=== PATIENT | female | born 1945 | race Caucasian/White ===

== ENCOUNTER → 2020-05-13 12:11 | Outpatient (CLI) | payer MEDICARE, SELFPAY ==
--- NOTE | ~2020-05-13 | MR_ITS ---
EXAMINATION: MR thoracic spine wo con EXAM DATE: 05/13/2020 13:20 INDICATION: Left arm pain, mid to low back pain. TECHNIQUE: Multi-sequential, multiplanar MR images of the thoracic spine were obtained without contra st. Sagittal T1, T2, T2 fat saturation, axial T2 weighted images reviewed. There is no prior study for comparison. FINDINGS: There is moderate disc disease at T7-8 with small to moderate-sized disc bulge and central protrusion indenting the spinal cord but causing no more than mild central canal stenosis. The spinal cord signal intensity and intrinsic morphology is normal. Mild to moderate disc bulges at T9-T10 and T10-11 also causing no more than mild central canal stenosis. There is overall mild to moderate thor acic facet arthropathy. Mild to moderate left neural foraminal stenosis from T9 through T11 and right neural foraminal stenosis from T9 through T12. Several renal lesions consistent with simple cysts. IMPRESSION: Overall mild to moderate thoracic spondylosis. Reviewed, dictated and finalized at location A.
--- NOTE | ~2020-05-13 | MR_ITS ---
EXAMINATION: MR cervical spine wo con EXAM DATE: 05/13/2020 13:20 INDICATION: Neck pain. Left arm pain. TECHNIQUE: Multi-sequential, multiplanar MR images of the cervical spine were obtained without contra st. Axial T2, axial T2 MERGE sequence. Sagittal T1, T2, T2 fat saturation images also obtained. Th ere is no prior study for comparison. FINDINGS: There is moderate disc disease at C6-7, mild to moderate at C5-6. There is 2 mm anterolist hesis C7 on T1. The vertebral bodies are otherwise aligned. Cervicomedullary junction is normal in a ppearance. There are no suspicious marrow signal abnormalities. Paraspinal soft tissue is unremarkabl e. Level by level evaluation: C2-C3: Disc does not extend beyond the endplate margin. Uncovertebral joint arthropathy: Mild right. Facet joint arthropathy: Moderate right, mild left. Neural foraminal stenosis: No stenosis. Central canal stenosis: No stenosis. C3-C4: Mild disc osteophyte complex asymmetric to the right Uncovertebral joint arthropathy: Mild to moderate right, mild left. Facet joint arthropathy: Moderate bilateral. Neural foraminal stenosis: Mild to moderate right, mild left. Central canal stenosis: Mild. C4-C5: Disc does not extend beyond the endplate margin. Uncovertebral joint arthropathy: Mild bilateral. Facet joint arthropathy: Moderate left, mild right. Neural foraminal stenosis: Mild left. Central canal stenosis: No stenosis. C5-C6: There is a mild diffuse disc bulge. Uncovertebral joint arthropathy: Mild to moderate bilateral. Facet joint arthropathy: Moderate left, mild to moderate right. Neural foraminal stenosis: Moderate right, mild left. Central canal stenosis: Mild. C6-C7: There is a mild to moderate diffuse disc bulge. Uncovertebral joint arthropathy: Moderate bilateral. Facet joint arthropathy: Mild to moderate left, mild right. Neural foraminal stenosis: Moderate to severe left, mild to moderate right. Central canal stenosis: Mild. C7-T1: There is a mild diffuse disc bulge. Uncovertebral joint arthropathy: Mild to moderate left, mild right. Facet joint arthropathy: Moderate right, mild left. Neural foraminal stenosis: Mild to moderate bilateral. Central canal stenosis: Mild. IMPRESSION: 1. C6-7 moderate to severe left neural foraminal stenosis. 2. Lesser spondylosis at other levels. Reviewed, dictated and finalized at location A.
--- NOTE | ~2020-05-13 | MR_ITS ---
EXAMINATION: MR lumbar spine wo [facility] EXAM DATE: 05/13/2020 13:33 INDICATION: Low back pain. TECHNIQUE: Multi-sequential, multiplanar MR images of the lumbar spine were obtained without contrast . Sagittal T1, T2, T2 fat saturation images. Axial T2 weighted images. Comparison is made to prior examination from 05/01/2006. FINDINGS: There is moderate upper thoracic dextroscoliosis with resultant loss of vertebral body heig hts and the concave side of the scoliosis. Moderate to severe disc disease at all lumbar levels. Ther e is 4 mm retrolisthesis L1 on L2, 3 mm retrolisthesis L2 on L3 and L3 on L4. An 5 mm retrolisthesis L5 on S1. The conus medullaris terminates at the T12-L1 level and has normal signal intensity and mor phology. Renal lesions which are fluid signal intensity, imaged portions are consistent with cysts. Level by level evaluation: T12-L1: There is a mild diffuse disc bulge. Facet arthropathy: Mild to moderate right, mild left. Neural foraminal stenosis: No stenosis. Central canal stenosis: No stenosis. L1-L2: There is a moderate diffuse disc bulge. Facet arthropathy: Moderate left, mild to moderate right. Neural foraminal stenosis: Mild to moderate left, mild right. Central canal stenosis: Mild to moderate. L2-L3: There is a moderate diffuse disc bulge. Facet arthropathy: Moderate. Neural foraminal stenosis: Moderate left, no right. Central canal stenosis: Mild to moderate. L3-L4: There is a moderate diffuse disc bulge. Facet arthropathy: Moderate bilateral. Neural foraminal stenosis: Mild to moderate left, mild right. Central canal stenosis: Mild to moderate. L4-L5: There is a moderate diffuse disc bulge. Facet arthropathy: Moderate. Neural foraminal stenosis: Moderate to severe right, mild to moderate left. Central canal stenosis: Mild to moderate. L5-S1: There is a moderate diffuse disc bulge. Facet arthropathy: Severe right, moderate left. Neural foraminal stenosis: Moderate to severe right, mild left. Central canal stenosis: Mild to moderate. IMPRESSION: 1. Moderate upper lumbar dextroscoliosis. 2. Moderate to severe diffuse lumbar disc disease 3. Moderate to severe right neural foraminal stenosis L4-5 and L5-S1. 4. Multiple lumbar subluxations. Reviewed, dictated and finalized at location A.
== END ==
PROVIDERS: PCP Family Medicine; Visit Provider Family Medicine
DX: M51.36 Other intervertebral disc degeneration, lumbar region (principal); M48.07 Spinal stenosis, lumbosacral region; M47.894 Other spondylosis, thoracic region; M48.02 Spinal stenosis, cervical region
CPT/HCPCS: 72141; 72146; 72148

== ENCOUNTER → 2020-09-30 11:44 | Outpatient (CLI) | payer MEDICARE, SELFPAY ==
--- NOTE | ~2020-09-30 | MM_ITS ---
EXAMINATION: MM screening dennis BI w jeet HISTORY: Screening mammogram, family history of breast cancer in her sister. TECHNIQUE: Craniocaudal and mediolateral oblique 3-D tomosynthesis images were obtained and synthetic 2-D images were generated. CAD analysis was submitted and interpreted. COMPARISON: 08/26/2019, 08/20/2018, 07/31/2017 BREAST PARENCHYMAL COMPOSITION: There are scattered areas of fibroglandular density. FINDINGS: Scattered benign-appearing calcifications are present. There is no evidence of suspicious m ass, calcification, or architectural distortion to suggest malignancy in either breast. There has bee n no suspicious interval change. IMPRESSION: 1. No mammographic evidence of malignancy. 2. Recommend routine screening mammography in one year. BI-RADS Category 2: Benign finding(s). Reviewed, dictated and finalized at location A. WAY ADMINISTRATIVE ENGINEER
== END ==
PROVIDERS: Visit Provider Obstetrics & Gynecology
DX: Z12.31 Encounter for screening mammogram for malignant neoplasm of breast (principal)
CPT/HCPCS: 77063; 77067

== ENCOUNTER → 2021-10-01 11:31 | Outpatient (CLI) | payer MEDICARE, SELFPAY ==
--- NOTE | ~2021-10-01 | MM_ITS ---
EXAMINATION: MM screening dennis BI w jeet HISTORY: Screening mammogram TECHNIQUE: Craniocaudal and mediolateral oblique 3-D tomosynthesis images were obtained and synthetic 2-D images were generated. CAD analysis was submitted and interpreted. COMPARISON: 09/30/2020, 08/26/2019, 08/20/2018 bilateral screening mammogram examinations BREAST PARENCHYMAL COMPOSITION: There are scattered areas of fibroglandular density. FINDINGS: Occasional benign calcifications. There is no evidence of suspicious mass, calcification, o r architectural distortion to suggest malignancy in either breast. There has been no suspicious inter paul change. IMPRESSION: 1. No mammographic evidence of malignancy. 2. Recommend routine screening mammography in one year. BI-RADS Category 2: Benign finding(s). Reviewed, dictated and finalized at location A. ING DIRECTOR
== END ==
PROVIDERS: PCP Family Medicine; Visit Provider Obstetrics & Gynecology
DX: Z12.31 Encounter for screening mammogram for malignant neoplasm of breast (principal)
CPT/HCPCS: 77063; 77067

== ENCOUNTER → 2022-06-30 14:46 | Outpatient (CLI) | payer MEDICARE, SELFPAY ==
--- NOTE | ~2022-06-30 | DEXA_ITS ---
Bone Density Report Name: AKASH DE Age: 77 Sex: Female Ethnicity: White Date of : 1945 Indication: postmenopausal; screening for osteoporosis; height loss; Referring Provider: ADAMS BACH Study: Bone densitometry was performed. Exam Date: June 30, 2022 Accession number: [id number] Bone Density: Region BMD T-score Z-score Classification AP Spine (L1, L2, L3) 1.229 1.9 4.4 Normal Femoral Neck (Left) 0.780 -0.6 1.6 Normal Total Hip (Left) 0.959 0.1 2.0 Normal Femoral Neck (Right) 0.683 -1.5 0.7 Osteopenia Total Hip (Right) 0.912 -0.2 1.7 Normal Total Hip Mean 0.936 -0.1 1.9 Normal World Health Organization criteria for BMD impression classify patients as: Normal (T-score at or above -1.0), Osteopenia (T-score between -1.0 and -2.5), or Osteoporosis (T-score at or below -2.5). 10-year Fracture Risk(1): Major Osteoporotic Fracture 13% Hip Fracture 2.8% Reported Risk Factors: [place] (), Neck BMD=0.683, BMI=25.8 (1) FRAX(R) Version 3.08. Fracture probability calculated for an untreated patient. Fracture probability may be lower if the patient has received treatment. Clinical Information Provided by Patient: Has used the following medications: Vitamin D, Calcium Patient maximum height was 64.5 Menopause Age: 47 Drinks caffeinated beverages Onset of menses at age 14 Number of children 1 Impression: The patient has low bone mass, based on the Right Femoral Neck T-score. The patient has an estimated ten-year risk of hip fracture of 2.8% and an estimated ten-year risk of major fracture of 13%, based on the WHO FRAX algorithm. Discussion: BONE DENSITY IS LOW AT ONE OR MORE SKELETAL SITES. This patient's lowest T-score is low at one or more skeletal sites. It meets the World Health Organization's (WHO) criteria for ?low bone mass? (T-score between -1.0 and -2.5). The patient's 10-year risk of fracture as calculated by FRAX is less than the threshold where pharmacological therapy is recommended by the National Osteoporosis Foundation (NOF). However, all treatment decisions require clinical judgment and consideration of individual patient factors, including patient preferences, comorbidities, previous drug use, risk factors not captured in the FRAX model (e.g., frailty, falls, vitamin D deficiency, increased bone turnover, interval significant decline in bone density) and possible under or overestimation of fracture risk by FRAX. The patient should follow a healthful lifestyle (good nutrition with adequate calcium and vitamin D, and appropriate weight-bearing exercise). Follow-Up: Consider repeating this study in 2 to 3 years to reassess this patient's status, or sooner if there is some new clinical indication. Reported by: [facility] on 06/30/2022 3:13:00 PM.
== END ==
PROVIDERS: PCP Family Medicine; Visit Provider Family Medicine
DX: Z78.0 Asymptomatic menopausal state (principal); M85.851 Other specified disorders of bone density and structure, right thigh
CPT/HCPCS: 77080

== ENCOUNTER → 2022-10-27 14:11 | Outpatient (CLI) | payer MEDICARE, SELFPAY ==
--- NOTE | ~2022-10-27 | US_ITS ---
US renal BI 10/27/2022 14:32 Procedure: Realtime transabdominal ultrasound of the kidneys and bladder. Indication: Hypertension. Comparison: Ultrasound dated 07/23/2013 Findings: Renal echotexture is normal bilaterally without hydronephrosis, contour deforming mass or r enal calculus. There are left renal cysts, largest measuring 2.5 cm. The right kidney measures 9.3 cm and left kidney measures 8.7 cm. Bladder within normal limits. Impression: 1: Left renal cysts, largest measuring 2.5 cm. Reviewed, dictated and finalized at location A. DOWEL MACHINE OPERATOR Impression: 1: Left renal cysts, largest measuring 2.5 cm.
== END ==
PROVIDERS: PCP Family Medicine; Visit Provider Internal Medicine Nephrology
DX: I12.9 Hypertensive chronic kidney disease with stage 1 through stage 4 chronic kidney disease, or unspecified chronic kidney disease (principal); N18.32 Chronic kidney disease, stage 3b; E78.2 Mixed hyperlipidemia; N28.1 Cyst of kidney, acquired
CPT/HCPCS: 76775

== ENCOUNTER → 2022-12-16 10:05 | Outpatient (CLI) | payer MEDICARE, SELFPAY ==
--- NOTE | ~2022-12-16 | XR_ITS ---
Right Shoulder Technique: AP and axillary views were obtained. Clinical History: Joint pain Findings: No fracture or dislocation is seen. Osseous alignment is anatomic. The glenohumeral and acr omioclavicular joint spaces are preserved. Soft tissues are unremarkable. Impression: Unremarkable right shoulder radiographs. Reviewed, dictated and finalized at [facility]. SSRS SSIS DEVELOPER Impression: Unremarkable right shoulder radiographs.
--- NOTE | ~2022-12-16 | XR_ITS ---
Right Hand Technique: PA and lateral views were obtained. Clinical History: Joint pain Findings: No acute fracture or dislocation is seen. There is minimal degenerative change at the inter phalangeal joint of the stomach and the second DIP joint. Soft tissues are unremarkable. Impression: Minimal degenerative change, as above. Reviewed, dictated and finalized at location . S LAYER Impression: Minimal degenerative change, as above.
--- NOTE | ~2022-12-16 | XR_ITS ---
Right Knee Technique: AP and lateral views were obtained. Clinical History: Pain Findings: No fracture or dislocation is seen. Osseous alignment is anatomic. Joint spaces are preserv ed without degenerative or erosive change. Moderate tricompartmental spurring noted. Soft tissues are unremarkable. No joint effusion is seen. Impression: Moderate tricompartmental degenerative spurring. Reviewed, dictated and finalized at location . E HAND PACKER Impression: Moderate tricompartmental degenerative spurring.
--- NOTE | ~2022-12-16 | XR_ITS ---
Left Hand Technique: PA and lateral views were obtained. Clinical History: Joint pain Findings: No acute fracture or dislocation is seen. Osseous alignment is anatomic. Joint spaces are p reserved. Soft tissues are unremarkable. Impression: Unremarkable left hand. Reviewed, dictated and finalized at location M. AURANT LINE SERVER Impression: Unremarkable left hand.
--- NOTE | ~2022-12-16 | XR_ITS ---
Left Knee Technique: AP and lateral views were obtained. Clinical History: Joint pain Findings: No fracture or dislocation is seen. Osseous alignment is anatomic. Mild tricompartmental sp urring noted. Soft tissues are unremarkable. No joint effusion is seen. Impression: Mild tricompartmental degenerative spurring Reviewed, dictated and finalized at [facility]. CHER TENDER Impression: Mild tricompartmental degenerative spurring
--- NOTE | ~2022-12-16 | XR_ITS ---
EXAMINATION: XR foot RT 2V, XR foot LT 2V DATE: 12/16/2022 12:09 INDICATION: Multiple joint pain TECHNIQUE: 1. Dorsoplantar and lateral views of the left foot were obtained. 2. Dorsoplantar and lateral views of the right foot were obtained. COMPARISON: None. FINDINGS: Mild bilateral hallux valgus with associated bunions medial heads of the first metatarsal and severe right and moderate left first metatarsophalangeal osteoarthritis. Alignment is otherwise unremarkable at both feet. No fractures. Additional mild polyarticular osteoarthritis involving multiple addition al joints throughout the bilateral feet. No erosions to suggest inflammatory arthritis. No ankle join t effusions. IMPRESSION: 1. Mild bilateral hallux valgus with bunions and severe left and moderate right first metatarsophalan geal osteoarthritis. Reviewed, dictated and finalized at location B. CTOR NICU IMPRESSION: 1. Mild bilateral hallux valgus with bunions and severe left and moderate right first metatarsophalangeal osteoarthritis.
--- NOTE | ~2022-12-16 | XR_ITS ---
AP and lateral views of the bilateral hips Clinical history: Pain Findings: No acute fracture or dislocation is seen. Osseous alignment is anatomic. Bilateral hip and SI joint spaces are preserved. Soft tissues are unremarkable. Impression: No significant abnormality is seen. Reviewed, dictated and finalized at [facility]. RINE CELLS OPERATOR Impression: No significant abnormality is seen.
--- NOTE | ~2022-12-16 | XR_ITS ---
Left Shoulder Technique: AP and axillary views were obtained. Clinical History: Joint pain Findings: No fracture or dislocation is seen. Osseous alignment is anatomic. The glenohumeral and acr omioclavicular joint spaces are preserved. Soft tissues are unremarkable. Impression: Unremarkable left shoulder radiographs. Reviewed, dictated and finalized at [facility]. CAL CENTER MANAGER Impression: Unremarkable left shoulder radiographs.
== END ==
PROVIDERS: PCP Family Medicine; Visit Provider Internal Medicine Rheumatology
DX: M25.50 Pain in unspecified joint (principal); M20.11 Hallux valgus (acquired), right foot; M20.12 Hallux valgus (acquired), left foot; M19.071 Primary osteoarthritis, right ankle and foot; M19.072 Primary osteoarthritis, left ankle and foot; M17.0 Bilateral primary osteoarthritis of knee
CPT/HCPCS: 73030; 73120; 73521; 73560; 73620

== ENCOUNTER 2023-02-15 15:29 | Outpatient (CLI) | payer MEDICARE, SELFPAY ==
[2023-02-15 15:45] LABS: Basophils Absolute Auto 0.1 K/mm3 (0.0-0.1); Basophils Percent Auto 0.6 % (0.2-1.2); Eosinophils Absolute Auto 0.2 K/mm3 (0-0.3); Eosinophils Percent Auto 1.9 % (0-4.4); Hematocrit 38.2 % (37.0-47.0); Hemoglobin 12.4 g/dL (12.0-15.0); Immature Granulocyte Absolute 0.02 K/mm3 (0.00-0.031); Immature Granulocyte Percent A 0.2 % (0-0.5); Lymphocytes Absolute Auto 3.08 K/mm3 (0.9-3.2); Lymphocytes Percent Auto 36.8 % (18.3-44.2); Mean Corpuscular HGB Conc 32.5 g/dl (32-36); Mean Corpuscular Hemoglobin 29.2 pg (26-34); Mean Corpuscular Volume 90.1 fl (80-100); Mean Platelet Volume 10.8 fl (7.4-10.4); Monocytes Absolute Auto 0.8 K/mm3 (0.1-0.6); Monocytes Percent Auto 9.9 % (2.6-8.5); Neutrophils Absolute Auto 4.2 K/mm3 (1.3-6.7); Neutrophils Percent Auto 50.6 % (45.5-73.1); Platelet Count Result 253 k/mm3 (150-375); Red Blood Count 4.24 M/mm3 (4.2-5.4); Red Cell Distribution Width 13.1 % (11.5-14.5); White Blood Count 8.4 K/mm3 (4.5-10.0)
[2023-02-15 16:29] LABS: Alanine Aminotransferase 29 U/L (6-35); Albumin Level 4.7 g/dL (3.5-5.1); Alkaline Phosphatase 70 U/L (38-126); Anion Gap 12 mmol/L (8-16); Aspartate Amino Transferase 30 U/L (14-36); Bilirubin,Total 0.4 mg/dL (0.2-1.3); Blood Urea Nitrogen 28 mg/dL (7-17); Calcium 9.8 mg/dL (8.4-10.2); Carbon Dioxide 24 mmol/L (22-30); Chloride 104 mmol/L (98-107); Estimated Glomerular Filt Rate 36; Glucose 104 mg/dL (65-110); Potassium 4.1 mmol/L (3.4-5.0); Sodium 140 mmol/L (137-145)
[2023-02-15 16:38] LABS: Immunoglobulin A 255 mg/dL (70-400); Immunoglobulin G 880 mg/dL (700-1600); Immunoglobulin M 112 mg/dL (40-230)
[2023-02-17 23:08] LABS: Albumin 4.1 g/dL (3.8-4.8); Alpha 1 Globulin 0.4 g/dL (0.2-0.3); Alpha 2 Globulin 1.1 g/dL (0.5-0.9); Beta 1 Globulin 0.5 g/dL (0.4-0.6); Gamma Globulin 0.9 g/dL (0.8-1.7); Protein, Total 7.3 g/dL (6.1-8.1)
[2023-02-18 09:27] LABS: Kappa\\Lambda Light Chains 1.31 (0.26-1.65)
== END 2023-02-15 15:30 | disposition home or self-care (01) ==
LOC: ANHLAB 15:32
PROVIDERS: PCP Family Medicine; Visit Provider Internal Medicine Hematology & Oncology
DX: D72.9 Disorder of white blood cells, unspecified (principal)
CPT/HCPCS: 36415; 80053; 82784; 83883; 84155; 84165; 85025

== ENCOUNTER → 2023-02-24 14:59 | Outpatient (CLI) | payer MEDICARE, SELFPAY ==
--- NOTE | ~2023-02-24 | MM_ITS ---
EXAMINATION: MM screening dennis BI w jeet HISTORY: Screening TECHNIQUE: Craniocaudal and mediolateral oblique 3-D tomosynthesis images were obtained and synthetic 2-D images were generated. CAD analysis was submitted and interpreted. COMPARISON: Comparison to multiple prior studies sequentially, with oldest reviewed study dated 05/2016. BREAST PARENCHYMAL COMPOSITION: The breasts are heterogeneously dense, which may obscure small masses . FINDINGS: There are developing asymmetries of the outer aspect of the right breast on CC view. The le ft breast is stable without evidence for malignancy. IMPRESSION: 1. New right breast asymmetries laterally on CC view. 2. Additional mammographic views and possible breast ultrasound are recommended. BI-RADS Category 0: Incomplete: Needs additional imaging evaluation. Reviewed, dictated and finalized at location A. IMPRESSION: 1. New right breast asymmetries laterally on CC view. 2. Additional mammographic views and possible breast ultrasound are recommended . BI-RADS Category 0: Incomplete: Needs additional imaging evaluation.
== END ==
PROVIDERS: PCP Family Medicine; Visit Provider Obstetrics & Gynecology
DX: Z12.31 Encounter for screening mammogram for malignant neoplasm of breast (principal); R92.8 Other abnormal and inconclusive findings on diagnostic imaging of breast
CPT/HCPCS: 77063; 77067

== ENCOUNTER → 2023-03-28 12:56 | Outpatient (CLI) | payer MEDICARE, SELFPAY ==
--- NOTE | ~2023-03-28 | MMUS_ITS ---
EXAMINATION: MM diagnostic dennis RT w jeet, US breast RT limited HISTORY: Right breast asymmetries on screening mammogram TECHNIQUE: Additional 3-D tomosynthesis images of the right breast were performed and synthetic 2-D i mages were generated. CAD analysis was submitted and interpreted. High resolution limited right breas t ultrasound was performed. COMPARISON: 02/24/2023, 10/01/2021, 09/30/2020 BREAST PARENCHYMAL COMPOSITION: The breasts are heterogeneously dense, which may obscure small masses . FINDINGS: MAMMOGRAPHIC FINDINGS: There is a return to baseline fibroglandular appearance with spot compression of the right breast in the area questioned on screening mammogram. ULTRASOUND: There is no suspicious solid or cystic mass in the vicinity of the mammographic findings in question. An intramammary lymph node is noted at the 9:00 location, 9 cm from the nipple. IMPRESSION: 1. No mammographic or sonographic evidence of malignancy. 2. Recommend routine screening mammography in one year. BI-RADS Category 2: Benign finding(s). Reviewed, dictated and finalized at location A. IMPRESSION: 1. No mammographic or sonographic evidence of malignancy. 2. Recommend routine screening mammography in one year. BI-RADS Category 2: Benign finding(s).
== END ==
PROVIDERS: PCP Obstetrics & Gynecology; Visit Provider Family Medicine
DX: R92.8 Other abnormal and inconclusive findings on diagnostic imaging of breast (principal)
CPT/HCPCS: 76642; 77061; 77065; G0279

== ENCOUNTER 2023-05-04 10:57 | Emergency (ER) | payer MEDICARE, SELFPAY ==
[2023-05-04] VITALS (34 sets, daily range): BP systolic 147–188; BP diastolic 51–157; PULSE 61–88; RESP 13–25; TEMP 36.8; O2SAT 96–100
--- NOTE | ~2023-05-04 | XR_ITS ---
EXAM: XR ankle LT min 3V DATE: 05/04/2023 15:08 HISTORY: post reduction . COMPARISON: None available. FINDINGS/IMPRESSION: Radiographic detail obscured by overlying cast material. Significantly improved alignment of the distal tibial and fibular fractures as well as the tibiotalar dislocation, status post reduction. Mild persistent anterior and lateral displacement of the medial malleolar fragment. Mild medial displacement of the segmental fracture fragment off the distal fibula. A posterior malleolar fracture is now evident. Reviewed, dictated and finalized at location K.
--- NOTE | ~2023-05-04 | XR_ITS ---
EXAMINATION: XR ankle LT min 3V DATE: 05/04/2023 11:41 INDICATION: Left ankle dislocation status post reduction. TECHNIQUE: 3 views of left ankle were obtained. COMPARISON: Left ankle radiographs 11:17 AM FINDINGS: There is a comminuted fracture of distal fibula with medial aspect of the fracture line 16 mm proximal to the level of the tibial plafond. The main distal fracture fragment demonstrates latera l displacement and angulation. There is a transverse fracture of medial malleolus with lateral displa cement and angulation of the distal fracture fragment. There is a displaced fracture of the posterior malleolus. There is lateral dislocation of talus with respect to tibial plafond. IMPRESSION: 1. Trimalleolar ankle fracture dislocation with only slight improvement in alignment. Reviewed, dictated and finalized at location A. IMPRESSION: 1. Trimalleolar ankle fracture dislocation with only slight improvement in alig nment.
--- NOTE | ~2023-05-04 | XR_ITS ---
EXAMINATION: XR tibia fibula LT 2V DATE: 05/04/2023 11:41 INDICATION: Left lower leg injury. TECHNIQUE: 2 views of left tibia and fibula were obtained. COMPARISON: Left ankle radiographs 11:34 AM FINDINGS: There is a trimalleolar ankle fracture dislocation described in more detail on the ankle ra diographs. The knee demonstrates moderate osteoarthritis of the medial compartment and mild osteoarth ritis of lateral and patellofemoral compartments. IMPRESSION: 1. Trimalleolar ankle fracture dislocation. 2. Moderate left knee osteoarthritis. Reviewed, dictated and finalized at location A.
--- NOTE | ~2023-05-04 | XR_ITS ---
. XR ankle LT min 3V 05/04/2023 12:49 Indication: Post reduction left ankle fracture Procedure: 3 views left ankle Comparison: 05/04/2023 Findings: There is improved alignment of comminuted bilateral malleolar fractures compared with prior study. Comminuted distal fibular fracture exhibits mild lateral angulation. Transverse fracture of t he medial malleolar is present with lateral displacement and angulation. The posterior malleolus is o bscured. Cannot exclude fracture at this location. Lateral dislocation of the talus with respect to t he tibial plafond, although significant improvement of alignment at this joint. Impression: 1: Improved alignment of comminuted bimalleolar fracture post reduction. Cannot exclude posterior mal leolar fracture. Reviewed, dictated and finalized at location L. Impression: 1: Improved alignment of comminuted bimalleolar fracture post reduction. Cannot exclude posterior malleolar fracture.
--- NOTE | ~2023-05-04 | XR_ITS ---
CORRECTED REPORT dictation error JMG 05/16/23 This report was recreated on 05/16/23. Original report was XR ankle LT min 3V 05/04/2023 11:28 Indication: LEFT ankle pain Procedure: 3 views LEFT ankle Comparison: No prior studies for comparison. Findings: There are comminuted displaced bimalleolar fractures. There is lateral and posterior dislocation of the talus with respect to the tibia. There is soft tissue swelling. Talus is grossly unremarkable. There are mild degenerative changes of the midfoot. Impression: 1: Displaced, comminuted bimalleolar fracture. Reviewed, dictated and finalized at location L. MTDD Impression: 1: Displaced, comminuted bimalleolar fracture.
[2023-05-04] MEDS: fentaNYL CITRATE INJ (*CRX) 100 MCG/2 ML VIAL (11:22)
--- NOTE | 2023-05-04 11:23 | PC.NURSE ---
akhil from Dr Britton Fentanyl 50 mcg ivp x1
--- NOTE | 2023-05-04 11:27 | PC.NURSE ---
Dr. Britton in room with pt, pain meds given and reduction performed. splint placed for repeat xray.
[2023-05-04] MEDS: PROPOFOL IV EMULSION 200 MG/20 ML VIAL ×2 (12:20→14:52)
--- NOTE | 2023-05-04 12:36 | PC.NURSE ---
1215: Time performed, all equip in room, consent signed. 1220: Dr. Britton at bedside, administers 60 mg of propofol IV 1221: Reduction complete 1222: Pt O2 dropping, requiring O2. 4L NC 1224: Pt full awake 1225: O2 reduced to 2L 1234: O2 removed. Pt fully awake at this time
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
[2023-05-04 12:44] LABS: Glucose Point of Care 144 mg/dl (65-105)
[2023-05-04] MEDS: HYDROmorphone HCL INJ (*CRX) 1 MG/ML SYR 0.5 MG IV PUSH (14:19)
--- NOTE | 2023-05-04 15:16 | PC.NURSE ---
1450 Performed time out with Dr. Bateman 1452 60mg Propofol was given by Dr. Britton 1455 Pt requiring some oxygen 1500 Dr. Bateman finished. Pt fully awake obtaining xray and weaning off oxygen
[2023-05-04] MEDS: HYDROcodone/acetaminophen (*CRX) 5-325 MG TABLET 1 TAB PO (17:15)
== END 2023-05-04 18:15 | disposition home or self-care (01) ==
PROVIDERS: Emergency Provider General Practice; PCP Family Medicine
DX: S82.852A Displaced trimalleolar fracture of left lower leg, initial encounter for closed fracture (principal); E11.22 Type 2 diabetes mellitus with diabetic chronic kidney disease; I12.9 Hypertensive chronic kidney disease with stage 1 through stage 4 chronic kidney disease, or unspecified chronic kidney disease; N18.30 Chronic kidney disease, stage 3 unspecified; E78.5 Hyperlipidemia, unspecified; E03.9 Hypothyroidism, unspecified; M17.12 Unilateral primary osteoarthritis, left knee; Z79.4 Long term (current) use of insulin; Z79.82 Long term (current) use of aspirin; V03.00XA Pedestrian on foot injured in collision with car, pick-up truck or van in nontraffic accident, initial encounter
CPT/HCPCS: 27818; 73590; 73610; 82948; 96374; 96375; 99285; A9270; J1170; J2704; J3010; J7030

== ENCOUNTER 2024-07-02 13:00 | Outpatient (CLI) | payer MEDICARE, SELFPAY ==
--- NOTE | ~2024-07-02 | XR_ITS ---
EXAM: XR hand LT min 3V DATE: 07/02/2024 13:18 HISTORY: Pain in joints of LT hand 3RD TO 4TH METACARPAL AREA . COMPARISON: 12/16/2022. FINDINGS: Decreased mineralization. No fracture or dislocation. No lytic or blastic lesion. Scattere d osteoarthritic changes, most notably in the interphalangeal joint of the thumb, triscaphe joint, an d the first CMC joint. No erosion or periosteal change. Soft tissues within normal limits. IMPRESSION: Mild polyarticular osteoarthritis. Reviewed, dictated and finalized at location K.
== END 2024-07-02 13:01 | disposition home or self-care (01) ==
LOC: ANHIMG 13:05
PROVIDERS: PCP Family Medicine; Visit Provider Plastic Surgery
DX: M19.042 Primary osteoarthritis, left hand (principal)
CPT/HCPCS: 73130

== ENCOUNTER 2024-08-07 13:22 | Outpatient (CLI) | payer MEDICARE, SELFPAY ==
--- NOTE | 2024-08-07 14:25 | NEURO_ITS ---
Impression: # Complains of cramps in left hand. # Left ulnar neuropathy across the elbow. # Needle/EMG exam mildly abnormal in left 1st DI and ADM Consistent with the clinical complaints of cramps. # No Carpal Tunnel Syndrome. Nerve Conduction Studies Anti Sensory Summary Table Stim Site NR Peak (ms) P-T Amp (?V) Site1 Site2 Delta-P (ms) Dist (cm) Hayden (m/s) Left Median Anti Sensory (2-3nd Digit) Wrist 3.5 16.4 Wrist 2-3nd Digit 3.5 14.0 40 Wrist 3.3 30.4 Wrist 2-3nd Digit 3.5 14.0 40 Left Radial Anti Sensory (Base 1st Digit) Wrist 2.3 7.0 Wrist Base 1st Digit 2.3 0.0 Left Ulnar Anti Sensory (5th Digit) Wrist 2.9 36.8 Wrist 5th Digit 2.9 14.0 48 Motor Summary Table Stim Site NR Onset (ms) O-P Amp (mV) Site1 Site2 Delta-0 (ms) Dist (cm) Hayden (m/s) Left Median Motor (Abd Poll Brev) Wrist 3.4 2.6 Elbow Wrist 5.0 28.0 56 Elbow 8.4 2.0 Left Ulnar Motor (Abd Dig Minimi) Wrist 2.9 7.4 A Elbow Wrist 5.6 28.0 50 A Elbow 8.5 5.8 B Elbow Wrist 3.4 20.0 59 B Elbow 6.3 4.3 F Wave Studies NR F-Lat (ms) L-R F-Lat (ms) Left Median (Mrkrs) (Abd Poll Brev) 31.00 Left Ulnar (Mrkrs) (Abd Dig Min) 29.46 EMG Side Muscle Nerve Root Ins Act Fibs Amp Dur Recrt Comment Left 1stDorInt Ulnar C8-T1 Nml Nml Nml >12ms +1 Left Ext Indicis Radial (Post Int) C7-8 Nml Nml Nml Nml Nml Left Ext Digitorum Radial (Post Int) C7-8 Nml Nml Nml Nml Nml Left BrachioRad Radial C5-6 Nml Nml Nml Nml Nml Left PronatorTeres Median C6-7 Nml Nml Nml Nml Nml Left Abd Poll Brev Median C8-T1 Nml Nml Nml Nml Nml Left ABD Dig Min Ulnar C8-T1 Nml Nml Nml >12ms +1 MTDD
== END 2024-08-07 13:23 | disposition home or self-care (01) ==
PROVIDERS: PCP Family Medicine; Visit Provider Plastic Surgery
DX: G56.02 Carpal tunnel syndrome, left upper limb (principal); M25.549 Pain in joints of unspecified hand; M62.838 Other muscle spasm; G56.22 Lesion of ulnar nerve, left upper limb
CPT/HCPCS: 95886; 95909

== ENCOUNTER 2025-01-03 08:53 | Outpatient (CLI) | payer MEDICARE, SELFPAY ==
--- OUTSIDE RECORDS SUMMARY | 2025-01-03 09:01 | XMS_ITS | Patient Health Record ---
Author Organization [facility] Address [address] [place] [address] Care Team Providers Care Terrazzo Tile Maker Name Role Phone Jewels Brown Primary Care Provider UnavailYariel Odom Unavailable [phone] Parisa Dillon Unavailable [phone] Ros, Provider Unavailable Unavailab le Allergies Allergen (clinical drug ingredient) Drug/Non Drug Allergy documented on EMR Reaction Allergy Type Onset Date Status CEFTRIAXONE ? (uncoded) Hives Allergy Active DAPTOMYCIN ? (uncoded) Hives Allergy Active Reason For Referral No Information Medications Medication SIG (Take, Route, Frequency, Duration) Notes Start Date End Date Status LANTUS Active VITAMIN B12 Active VITAMIN A Active CALCIUM 500+D Active Losartan Potassium *Please revie w and pick correct strength-formulati on from Medispan options. If intended option is not shown, discontinue and re-order from Quick Search* Active ASPIRIN 81 mg 1 tab(s) orally once a day Active Meclizine HCl *Please review a nd pick correct strength-formulati on from Medispan options. If intended option is not shown, discontinue and re-order from Quick Search* Active FISH OIL Active amLODIPine Besylate *Please revi ew and pick correct strength-formulati on from Medispan options. If intended option is not shown, discontinue and re-order from Quick Search* Active VITAMIN D3 Active VITAMIN C Active ZYRTEC 10 mg 1 tab(s) orally once a day Active Levothyroxine Sodium *Please rev iew and pick correct strength-formulati on from Medispan options. If intended option is not shown, discontinue and re-order from Quick Search* Active VITAMIN E Active Atorvastatin Calcium *Please rev iew and pick correct strength-formulati on from Medispan options. If intended option is not shown, discontinue and re-order from Quick Search* Active Fish Oil *Please review a nd pick correct strength-formulati on from Medispan options. If intended option is not shown, discontinue and re-order from Quick Search* Active Spironolactone *Please review a nd pick correct strength-formulati on from Medispan options. If intended option is not shown, discontinue and re-order from Quick Search* Active Calcium 500+D *Please review a nd pick correct strength-formulati on from Medispan options. If intended option is not shown, discontinue and re-order from Quick Search* Active hydrALAZINE HCl *Please review a nd pick correct strength-formulati on from Medispan options. If intended option is not shown, discontinue and re-order from Quick Search* Active MONTELUKAST 10 mg 1 tab(s) orally once a day for 30 days 12/26/2023 Active Lantus *Please review a nd pick correct strength-formulati on from Medispan options. If intended option is not shown, discontinue and re-order from Quick Search* Active PEPCID 20 mg 1 tab(s) orally 2 times a day for 30 days 12/26/2023 Active HumaLOG *Please review a nd pick correct strength-formulati on from Medispan options. If intended option is not shown, discontinue and re-order from Quick Search* Active Aspirin 81 MG 1 tab(s) orally once a day Active HYDRALAZINE Active ZyrTEC Allergy 10 MG 1 tab(s) orally once a day Active AMLODIPINE Active Vitamin E *Please review a nd pick correct strength-formulati on from Medispan options. If intended option is not shown, discontinue and re-order from Quick Search* Active HUMALOG Active SPIRONOLACTONE Activ e CETIRIZINE 10 mg 1 tab(s) orally twice a day for 30 days 12/26/2023 Active LEVOTHYROXINE Active Vitamin B12 *Please review a nd pick correct strength-formulati on from Medispan options. If intended option is not shown, discontinue and re-order from Quick Search* Active ATORVASTATIN Active Vitamin A *Please review a nd pick correct strength-formulati on from Medispan options. If intended option is not shown, discontinue and re-order from Quick Search* Active LOSARTAN Active Vitamin D3 *Please review a nd pick correct strength-formulati on from Medispan options. If intended option is not shown, discontinue and re-order from Quick Search* Active MECLIZINE Active Vitamin C *Please review a nd pick correct strength-formulati on from Medispan options. If intended option is not shown, discontinue and re-order from Quick Search* Active Montelukast Sodium 10 MG 1 tab(s) orally once a day for 30 days 12/26/2023 Active Cetirizine HCl 10 MG 1 tab(s) orally twice a day for 30 days 12/26/2023 Active Pepcid 20 MG 1 tab(s) orally 2 times a day for 30 days 12/26/2023 Active Immunizations Vaccine Route Administration Date Status Comme nts [facility] Quadrivalent Unknown 08/24/2023 Administered Po rtal Information NOC Prevnar 13 Unknown 07/22/2021 Administered Portal I nformation Social History Tobacco Use: Social History Observation Description Date Details (start date - stop date) Never Smoker NA - NA Smoking Smart Form: Question Answer Notes Are you a: never smoker Problems Problem Type SNOMED Code ICD Code Onset Dates Problem Status W/U Status Risk Notes Problem Eruption of skin (634698015) Rash and other nonspecific skin eruption (R21) Active confirmed Problem Essential hypertension (63223476) Essential (primary) hypertension (I10) Active confirmed Problem Chronic rhinitis (13758495) Chronic rhinitis (J31.0) Active confirmed Problem Hypertrophy of nasal turbinates (61831764) Hypertrophy of nasal turbinates (J34.3) Active confirmed Encounters Encounter Location Date Provider Diagnosis [facility] [place] [address] 05/04/2024 Provider ZZ-Migration Rash and other nonspecific skin eruption R21 Assessments Encounter Date Diagnosis (ICD Code) Assessment Notes Treatment Notes Treatment Clinical Notes Section Notes 05/04/2024 Rash and other nonspecific skin eruption (ICD-10 - R21) Plan Of Treatment Pending Test Test Name Order Date BASOFUNCTION HRT CEPHALOSPORIN 4 Insurance Providers Payer Name Payer Address Payer Phone Subscriber Number Group Number Insured Name Patient Relationship to Insured Coverage Start Date Coverage End Date [employer] (Medicare) Attention Claims [address] [place] [address] [id number] Mirta Cobos Self - patient is the insured AARP Medicare Advantage from [facility] [address] [address] [place] [address] [id number] Mirta Cobos Self - patient is the insured Medical (General) History Medical History History ICD Code Diabetes mellitus Hypertension Hypothyroidism Surgical History Surgery Date(Month/Year) Severely broken left ankle 05/12/2023 Removal of one 2 screw left ankle 09/08 Hospitalization History Reason Date(Month/Year) Infection of left ankle after surgery
--- OUTSIDE RECORDS SUMMARY | 2025-01-03 09:01 | XMS_ITS | Encounter Summary ---
Author Organization [facility] Address 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 Gender Identity Not on file Sexual Orientation Not on file documented as of this encounter Plan of Treatment Upcoming Encounters Date Type Department Care Team (Late st Contact Info) Description 03/04/2025 11:00 AM CDT Office Visit [facility] Oncology and Hematology - [place] [address] [place] [address] [address] Anil Jay MD [address] [facility] [address] [place] [address] documented as of this encounter Visit Diagnoses Diagnosis Lumbago- Primary documented in this encounter Care Teams Force Variation Equipment Tender Relationship Specialty Start Date End Date Jewels Brown MD [address] [place] [address] PCP - General Family Practice 02/15/23 documented as of this encounter
--- OUTSIDE RECORDS SUMMARY | 2025-01-03 09:01 | XMS_ITS ---
Author Organization [facility] Address [address] [place] [address] Care Team Providers Care Cafeteria Team Leader Name Role Phone KevinJewels Primary Care Provider UnavailYariel Odom Unavailable [phone] ZZ-Migration, Provider Unavailable Unavailab le Allergies Allergen (clinical drug ingredient) Drug/Non Drug Allergy documented on EMR Reaction Allergy Type Onset Date Status CEFTRIAXONE ? (uncoded) Hives Allergy Active DAPTOMYCIN ? (uncoded) Hives Allergy [facility] Encounter Medications Medication SIG (Take, Route, Frequency, Duration) Notes Start Date End Date Status Montelukast Sodium 10 MG 1 tab(s) orally once a day for 30 days 12/26/2023 Active Cetirizine HCl 10 MG 1 tab(s) orally twice a day for 30 days 12/26/2023 Active Pepcid 20 MG 1 tab(s) orally 2 times a day for 30 days 12/26/2023 Active Levothyroxine Sodium *Please rev iew and pick correct strength-formulati on from Medispan options. If intended option is not shown, discontinue and re-order from Quick Search* Active Atorvastatin Calcium *Please rev iew and [...] discontinue and re-order from Quick Search* Active Losartan Potassium *Please revie w and pick correct strength-formulati on from Medispan options. If intended option is not shown, discontinue and re-order from Quick Search* Active Meclizine HCl *Please review a nd pick correct strength-formulati on from Medispan options. If intended option is not shown, discontinue and re-order from Quick Search* Active amLODIPine Besylate *Please revi ew and pick correct strength-formulati on from Medispan options. If intended option is not shown, discontinue and re-order from Quick Search* Active Lantus *Please review a nd pick correct strength-formulati on from Medispan options. If intended option is not shown, discontinue and re-order from Quick Search* Active HumaLOG *Please review a nd pick correct strength-formulati on from Medispan options. If intended option is not shown, discontinue and re-order from Quick Search* Active Vitamin B12 *Please review a nd pick correct strength-formulati on from Medispan options. If intended option is not shown, discontinue and re-order from Quick Search* Active Vitamin A *Please review a nd pick correct strength-formulati on from Medispan options. If intended option is not shown, discontinue and re-order from Quick Search* Active Vitamin C *Please review a nd pick correct strength-formulati on from Medispan options. If intended option is not shown, discontinue and re-order from Quick Search* Active Calcium 500+D *Please review a nd pick correct strength-formulati on from Medispan options. If intended option is not shown, discontinue and re-order from Quick Search* Active Aspirin 81 MG 1 tab(s) orally once a day Active ZyrTEC Allergy 10 MG 1 tab(s) orally once a day Active Vitamin E *Please review a nd pick correct strength-formulati on from Medispan options. If intended option is not shown, discontinue and re-order from Quick Search* Active Vitamin D3 *Please review a nd pick correct strength-formulati on from Medispan options. If intended option is not shown, discontinue and re-order from Quick Search* Active Fish Oil *Please review a nd pick correct strength-formulati on from Medispan options. If intended option is not shown, discontinue and re-order from Quick Search* Active Encounters Encounter Location Date Provider Diagnosis [facility] [address] [place] [address] 05/04/2024 Provider JOSHUA-Migration Rash and other nonspecific skin eruption R21 Assessments Encounter Date Diagnosis (ICD Code) Assessment Notes Treatment Notes Treatment Clinical Notes Section Notes 05/04/2024 Rash and other nonspecific skin eruption (ICD-10 - R21) Plan Of Treatment Medication Medication Name Sig Start Date Stop Date Notes Montelukast Sodium 10 MG 1 tab(s) orally once a day for 30 days 12/26/2023 Cetirizine HCl 10 MG 1 tab(s) orally twi ce a day for 30 days 12/26/2023 Pepcid 20 MG 1 tab(s) orally 2 ti mes a day for 30 days 12/26/2023 Progress Notes * Wiliam DEOB:1945 (79 yo F)Acc No.[id number]:05/04/2024 Patient: Lynne PERALTAyce Provider: Evette Boswell :1945 A ge:79 Y S ex:Female Date:05/04/2024 Address:[address] [place] [address] [id number] Pcp:Jewels Brown Subjective: * Chief Complaints: * 1 . Multum To Medispan Conversion Encounter. * Medical History: * Medications: T aking Fish Oil , Notes to Pharmacist: *Please review and pick correct strength-formulation from Medispan options. If intended option is not shown, discontinue and re-order from Quick Search*, Taking Calcium 500+D , Notes to Pharmacist: *Please review and pick correct strength-formulation from Medispan options. If intended option is not shown, discontinue and re-order from Quick Search*, Taking Aspirin 81 MG Tablet Delayed Release 1 tab(s) orally once a day , Taking ZyrTEC Allergy 10 MG Tablet 1 tab(s) orally once a day , Taking Vitamin E , Notes to Pharmacist: *Please review and pick correct strength-formulation from Medispan options. If intended option is not shown, discontinue and re-order from Quick Search*, Taking Vitamin D3 , Notes to Pharmacist: *Please review and pick correct strength-formulation from Medispan options. If intended option is not shown, discontinue and re-order from Quick Search*, Taking Vitamin C , Notes to Pharmacist: *Please review and pick correct strength-formulation from Medispan options. If intended option is not shown, discontinue and re-order from Quick Search*, Taking Vitamin B12 , Notes to Pharmacist: *Please review and pick correct strength-formulation from Medispan options. If intended option is not shown, discontinue and re-order from Quick Search*, Taking Vitamin A , Notes to Pharmacist: *Please review and pick correct strength-formulation from Medispan options. If intended option is not shown, discontinue and re-order from Quick Search*, Taking Lantus , Notes to Pharmacist: *Please review and pick correct strength- formulation from Medispan options. If intended option is not shown, discontinue and re-order from Quick Search*, Taking HumaLOG , Notes to Pharmacist: *Please review and pick correct strength-formulation from Medispan options. If intended option is not shown, discontinue and re-order from Quick Search*, Taking Spironolactone , Notes to Pharmacist: *Please review and pick correct strength-formulation from Medispan options. If intended option is not shown, discontinue and re-order from Quick Search*, Taking hydrALAZINE HCl , Notes to Pharmacist: *Please review and pick correct strength-formulation from Medispan options. If intended option is not shown, discontinue and re-order from Quick Search*, Taking amLODIPine Besylate , Notes to Pharmacist: *Please review and pick correct strength-formulation from Medispan options. If intended option is not shown, discontinue and re-order from Quick Search*, Taking Losartan Potassium , Notes to Pharmacist: *Please review and pick correct strength-formulation from Medispan options. If intended option is not shown, discontinue and re-order from Quick Search*, Taking Meclizine HCl , Notes to Pharmacist: *Please review and pick correct strength-formulation from Medispan options. If intended option is not shown, discontinue and re-order from Quick Search*, Taking Levothyroxine Sodium , Notes to Pharmacist: *Please review and pick correct strength-formulation from Medispan options. If intended option is not shown, discontinue and re-order from Quick Search*, Taking Atorvastatin Calcium , Notes to Pharmacist: *Please review and pick correct strength-formulation from Medispan options. If intended option is not shown, discontinue and re-order from Quick Search* * Allergies: D APTOMYCIN ?: Hives, CEFTRIAXONE ?: Hives. Objective: * Vitals: Assessment: * Assessment: 1. R amrita and other nonspecific skin eruption - R21 (Primary) Plan: * Treatment: * Billing Information: * Visit Code: * Procedure Codes: * Electronic signature of Corbin OrrZ-Migration on 01/03/2025 at 09:01 AM MEDICAL RECORD LIBRARIANS TEACHER Sign off status: Pending * Provider: Evette javier Migration Date: 0 05/04/2024 Generated for Ofe murray/Sami/Aimee on: 0 01/03/2025 09:01 AM MEDICAL RECORD LIBRARIANS TEACHER
--- OUTSIDE RECORDS SUMMARY | 2025-01-03 09:01 | XMS_ITS | Encounter Summary ---
Author Organization [facility] Address [address] [place] [address] Care Team Providers Care Fabrication Inspector Name Role Phone Jewesl Brown MD Primary Care Provider Encounter Details Date Type Department Care Team (Latest Contact Info) Description 02/09/2001 Outpatient Historical [facility] [address] [facility] Occupational Medicine [place], [place] [phone] Lumbago (Primary Dx) Social History Tobacco Use Types Packs/Day Years Used Date Smoking Tobacco: Never Assessed Comments Unknown Sex and Gender Information Value Date Recorded Sex Assigned at Not on file Legal 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 Gender Identity Not on file Sexual Orientation Not on file documented as of this encounter Plan of Treatment Upcoming Encounters Date Type Department Care Team (Late st Contact Info) Description 03/04/2025 11:00 AM CDT Office Visit [facility] Oncology and Hematology - [place] [address] [place] [address] [address] Anil Jay MD [address] [facility] [address] [place] [phone] documented as of this encounter Visit Diagnoses Diagnosis Lumbago- Primary documented in this encounter Care Teams Fabrication Inspector Relationship Specialty Start Date End Date Jewels Brown MD [address] [place] [address] PCP - General Family Practice 02/15/23 documented as of this encounter
--- OUTSIDE RECORDS SUMMARY | 2025-01-03 09:01 | XMS_ITS | Clinical Summary ---
Author Organization [facility] Building [address] Address [address] [place] [address] Care Team Providers Care Manager Category Name Role Phone Jewels Brown MD Primary Care Provider [phone] Milton Rose MD Unavailable [phone] Tae Boswell MD Unavailable [phone] Tati Bragg Unavailable [phone] Allergies Active Allergy Reactions Criticality Noted Date Comments Ceftriaxone Hives Medium 09/08/2023 Reports happened 6 weeks into taking IV via PICC line Daptomycin Hives Medium 09/08/2023 Reports happened 6 weeks into taking this via PICC line Propoxyphene Other (See comments),Dizziness Medium Reaction: Unknown, Shrimp Nausea & Vomiting Low 04/19/2024 numbness Medications carBAMazepine (TEGretol) 200 mg tablet Take 0.5 tablets (100 mg total) by mouth as directed 100 mg every 3 days takes for eye tic left - Sundays, Monday, Fridays. 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 2 tablets 09/07/20 17 Active losartan (COZAAR) 100 mg tablet Take 1 tablet (100 mg total) by mouth nightly 09/07/20 17 Active meclizine (ANTIVERT) 25 mg tablet Take 1 tablet (25 mg total) by mouth daily 09/07/20 17 Active atorvastatin (LIPITOR) 40 mg tablet Take 1 tablet (40 mg total) by mouth nightly 11/20/19 18 Active amLODIPine (NORVASC) 10 mg tablet Take 2.5 mg by mouth daily 04/22/20 22 Active hydrALAZINE (APRESOLINE) 10 mg tablet Take 1 tablet (10 mg total) by mouth 2 (two) times a day 12/19/19 23 Active cetirizine (ZyrTEC) 10 mg tablet Take 1 tablet (10 mg total) by mouth daily Act anjel insulin glargine (LANTUS) 100 unit/mL (3 mL) pen for injection Inject 32 Units under the skin nightly 3 mL 1 07/07/20 23 Active Additional Information Patient taking differently: 35 Unitssubcutaneous Nightly, Informant: Self, Reported on 08/28/2023 spironolactone -hydroCHLOROth iazide (ALDACTAZIDE) 25-25 mg per tablet Take 0.5 tablets by mouth 2 (two) times a day 30 tablet 1 07/07/20 23 Active vitamin A 2,400 mcg (8,000 units) capsule Take 1 capsule (8,000 Units total) by mouth daily 05/13/20 23 Active ascorbic acid (vitamin C) 100 mg tablet Take 1 tablet (100 mg total) by mouth daily 05/13/20 23 Active cholecalcifero l 400 unit capsule Take 1 tablet/capsule (400 Units total) by mouth daily 05/13/20 23 Active calcium citrate-vitami n D3 (CITRACAL WITH D) 315 mg-6.25 mcg (250 unit) per tablet Take 1 tablet by mouth daily Active diphenhydrAMIN E HCL 25 mg tablet,disinte grating Take 25 mg by mouth as needed (itching/hives) Active insulin lispro (HumaLOG) 100 unit/mL pen for injection INJECT SUBCUTANEOUSLY DIRECTED UP TO A MAXIMUM DAILY DOSE: OF 40 UNITS 45 mL 10/16/20 23 Active Additional Information Patient taking differently: 16 Units subcutaneous 3 times daily before meals, INJECT SUBCUTANEOUSLY DIRECTED UP TO A MAXIMUM DAILY DOSE: OF 40 UNITS, Reported on 04/12/2024 acetaminophen (TYLENOL) 500 mg tablet Take 2 tablets (1,000 mg total) by mouth every 6 (six) hours as needed for pain Active red yeast rice 600 mg capsule Take 1 tablet by mouth daily Active alpha lipoic acid 200 mg capsule Take 1 tablet by mouth daily Active aspirin 81 mg chewable tabletIndicati ons:prevention of thrombosis Take 1 tablet (81 mg total) by mouth 2 (two) times a day for 14 days 28 tablet 04/19/20 24 Active HYDROcodone-ac etaminophen (NORCO) 5-325 mg per tabletIndicati ons:Pain Take 1 tablet by mouth every 6 (six) hours as needed for pain 10 tablet 04/19/20 24 Active famotidine (Pepcid) 20 mg tablet every 12 hours 12/26/19 24 Active montelukast (SINGULAIR) 10 mg tablet daily 12/26/19 24 Active Active Problems Problem Noted Date Diagnosed Date S/P hardware removal 09/25/2023 Assessment & Plan (05/06/2024 10:26 AM CDT): Patient is doing well overall. X-rays were reviewed with the patient today in clinic and demonstrate hardware in good alignment without apparent complication. No evidence of infection of the surgical site. Sutures were removed today in clinic and Steri-Strips applied. Patient will continue to keep the surgical site clean and dry for 2 more weeks and then may start getting it wet in the shower. Signs of infection were reviewed with the patient including increased swelling and erythema along the surgical site, purulent drainage from the surgical site, fever, chills and they will notify us they develop any of these signs. She may advance her activity slowly as tolerated. She will follow up in 4 weeks for x-rays and further evaluation with Dr. Goetz. Expressed understanding and agreement with the plan. Assessment & Plan (09/25/2023 9:45 AM TOP SCREW): Patient is doing very well overall. X-rays were reviewed with the patient, demonstrating interval removal of the syndesmotic screw. Hardware is still in good alignment. Surgical site is well approximated and appears to be healing well without signs of infection. Sutures are removed today in clinic and Steri-Strips applied. There is also no evidence of infection over the lateral malleolus which is currently scabbed over. Patient will continue to keep the surgical site clean and dry for the next week or so, and then may begin getting it wet in the shower. Discussed with the patient not to soak the incision site. Patient will begin physical therapy for the left ankle to increase range of motion and strength. She will continue to ambulate with a cane as needed. She will follow up in 2 months for further evaluation. She expressed understanding and agreement with the plan. Painful orthopaedic hardware 08/24/2023 Infection of deep incisional surgical site after procedure 07/07/2023 Cellulitis 07/02/2023 Cellulitis of left ankle 07/02/2023 Stage 3b chronic kidney disease 07/02/2023 Elevated lactic acid level 07/02/2023 Closed fracture of ankle, trimalleolar, left, se quela 05/12/2023 Assessment & Plan (11/27/2023 9:01 AM TOP SCREW): Patient is doing well overall but still demonstrates stiffness and pain on exam. She is very interested in having the remainder of her hardware removed as soon as she is able to. She will make an appointment with Dr. Goetz in 3-4 months for further discussion of hardware removal. Otherwise, she will continue to increase her activity as tolerated. She may continue to attend her [employer] classes and perform her physical therapy at home. I also discussed with her that she can wear compression socks to reduce swelling.She will continue to monitor for signs of infection. She expressed understanding and agreement with the plan and will follow up with Dr. Goetz in 3-4 months. Assessment & Plan (07/20/2023 12:47 PM CDT): Patient has superficial infection surrounding the surgical site, appears to be healing well with antibiotic therapy. Discussed with the patient that we would like her to continue the antibiotic therapy for 4 more weeks. At that time we will discuss removal of hardware versus leaving the hardware in if infection is cleared up. She will I will notify us if she does develop any increase in erythema, swelling, discharge from the surgical site. Discussed with the patient that we would like to leave the hardware in if possible, and only remove the syndesmotic screw if needed, as removing the whole plate would create another big incision and introduce the risk for reinfection. Removing the hardware could also make her ankle less stable. She is not experiencing pain over the fracture site at this time. Discussed with patient that she may begin protected weight-bearing on the leg without the boot using a walker. She will follow up with us in 4 weeks for further evaluation of the wound and discussion of next steps. She expressed understanding and agreement with the plan. Assessment & Plan (06/12/2023 10:26 AM CDT): Patient has shown significant improvement in left ankle strength and motion. Patient will continue with physical therapy until her next appointment in 2 weeks. Her pain is well controlled with Cottonwood and OTC pain medications, she does not need a refill at this time. Her surgical sites are healing well and are without signs of infection. Patient will remain nonweightbearing and in the boot until her next appointment. She will follow up with Dr. Goetz on 06/26/2023 for x-rays to assess radiographic healing and to assess further improvement in left ankle strength from physical therapy. May consider more PT at that time to assist with balance and movement. Assessment & Plan (05/29/2023 12:26 PM CDT): Patient is still having pain, and is unable to flex her left ankle. She was unable to get her foot in the boot while at home and has been without the boot since her operation. Due to this, we will start physical therapy 2-3 days a week immediately for assistance in stretching the Achilles and calf to prevent contracture and increase mobility. She is still to remain nonweightbearing. She was also given a short leg boot because she feels the long leg boot was too heavy for her and was preventing mobility. She was given wedges to put in the boot to assist with pain. Patient was instructed to remain in the boot as much as possible unless cleaning the leg or in physical therapy. For her pain, I renewed her Cottonwood prescription with instructions to wean off when possible. Her sutures were removed today in office and Steri-Strips applied. There is no evidence of drainage or infection. Patient was instructed to let us know if her incisions have any increased redness, swelling, drainage, or if she develops fever, chills, chest pain, shortness of breath. She will follow up with me in 2 weeks to re-evaluate her ankle flexion and progress in physical therapy. We will also obtain new x-rays at that time to evaluate for radiographic healing. This plan was created in discussion and evaluation of the patient with Dr. Goetz. The patient expressed understanding and agreement with the plan. Closed trimalleolar fracture of left ankle 05/10 Acquired hypothyroidism 12/09/2020 Mixed hyperlipidemia 04/15/2020 Assessment & Plan (04/15/2020 9:31 AM CDT): Under control with Lipitor Being monitored by PCP - continue same medication. Essential hypertension 04/15/2020 Assessment & Plan (01/09/2023 10:08 AM TOP SCREW): Controlled with medication including Losartan - continue low salt diet - continue same medication per PCP Assessment & Plan (09/06/2022 9:06 AM CDT): Controlled with medication including Losartan - continue low salt diet - continue same medication per PCP Assessment & Plan (05/05/2022 10:35 AM CDT): Controlled with medication including Losartan - continue low salt diet - continue same medication per PCP Assessment & Plan (01/03/2022 10:14 AM TOP SCREW): Controlled with medication including Losartan - continue low salt diet - continue same medication per PCP Assessment & Plan (08/04/2021 10:08 AM CDT): Controlled with medication including Losartan - continue low salt diet - continue same medication per PCP Assessment & Plan (04/07/2021 9:43 AM CDT): Controlled with medication including Losartan - continue low salt diet - continue same medication Assessment & Plan (12/09/2020 10:02 AM TOP SCREW): Under control with medication including Losartan - continue low salt diet - continue same medication. Assessment & Plan (08/05/2020 9:45 AM CDT): Under control with medication including Losartan - continue low salt diet - continue same medication. Assessment & Plan (04/15/2020 9:31 AM CDT): Under control with medication including Losartan - continue low salt diet - continue same medication. Type 2 diabetes mellitus wit h stage 3 chronic kidney disease, with long-term current use of insulin 01/31/2018 Assessment & Plan (01/09/2023 10:08 AM TOP SCREW): Control : in good tim, without frequent hypoglycemia A1c 6.4% on 01/09/23 A1c 6.5% on 09/06/22 A1c 6.7% on 05/05/22 A1c 6.7% on 01/03/22 Kidney: nephropathy ,CKD with GFR 39 on 12/16/22 Followed by nephrology Neuropathy : none Plan: Continue diet plan. Decrease Lantus insulin to 35 units once /day Continue Humalog with meals : 14 units with breakfast And 18 units with dinner Monitor sugars 3 x per day and bring records. Hypoglycemia symptoms and treatment reviewed with patient. Call if having low sugars. Ophthalmology exam on regular basis. Assessment & Plan (09/06/2022 9:06 AM CDT): Control : in good tim, without frequent hypoglycemia A1c 6.5% on 09/06/22 A1c 6.7% on 05/05/22 A1c 6.7% on 01/03/22 A1c 6.6% on 08/04/21 Kidney: nephropathy ,CKD with GFR 35 on 08/25/22 Followed by her PCP Neuropathy : none Plan: Continue diet plan. Continue same dose of Lantus Continue Humalog with meals : 14 units with breakfast And 18 units with dinner Monitor sugars 3 x per day and bring records. Hypoglycemia symptoms and treatment reviewed with patient. Call if having low sugars. Ophthalmology exam on regular basis. Assessment & Plan (05/05/2022 10:35 AM CDT): Control : in good margaretrol, without frequent hypoglycemia A1c 6.7% on 05/05/22 A1c 6.7% on 01/03/22 A1c 6.6% on 08/04/21 Kidney: CKD with GFR 34 on 12/20/21 Followed by her PCP Neuropathy : none Plan: Continue diet plan. Continue same dose of Lantus Continue Humalog with meals : 14 units with breakfast And 18 units with dinner Monitor sugars 3 x per day and bring records. Hypoglycemia symptoms and treatment reviewed with patient. Call if having low sugars. Ophthalmology exam on regular basis. Assessment & Plan (01/03/2022 10:13 AM TOP SCREW): Control : in good conrol, but no frequent hypoglycemia A1c 6.7% on 01/03/22 A1c 6.6% on 08/04/21 A1c 7.0% on 04/07/21 A1c 6.8% on 12/09/20 Kidney: CKD with GFR 34 on 12/20/21 Followed by her PCP Neuropathy : none Plan: Continue diet plan. Continue same dose of Lantus Continue Humalog with meals : 14 units with breakfast And 18 units with dinner Monitor sugars 3 x per day and bring records. Hypoglycemia symptoms and treatment reviewed with patient. Call if having low sugars. Ophthalmology exam on regular basis. Assessment & Plan (08/04/2021 10:07 AM CDT): Control : in tight conrol, but no frequent hypoglycemia A1c 6.6% on 08/04/21 A1c 7.0% on 04/07/21 A1c 6.8% on 12/09/20 A1c 6.8% on 05/07/2020 A1c 7.4% on 01/29/2020. Kidney: CKD with GFR 38 on 06/03/21 Followed by her PCP Neuropathy : none Plan: Continue diet plan. Continue same dose of Lantus Decrease Humalog with meals : 14 units with breakfast And 18 units with dinner Monitor sugars 3 x per day and bring records. Hypoglycemia symptoms and treatment reviewed with patient. Call if having low sugars. Ophthalmology exam on regular basis. Assessment & Plan (04/07/2021 9:35 AM CDT): Control : in reasonable control without frequent hypoglycemia A1c 7.0% on 04/07/21 A1c 6.8% on 12/09/20 A1c 6.8% on 05/07/2020 A1c 7.4% on 01/29/2020. A1c 7.3% on 07/24/19. A1c 6.9% on 04/25/19. A1c 7.4% on 01/14/19 Kidney: CKD with GFR 39 on 10/24/20 Followed by her PCP Neuropathy : none Plan: Continue diet plan. Continue same dose of Lantus Continue Humalog with meals. She can take extra 2 units of Humalog with dinner( 20 units) with high carb meal. Monitor sugars 3-4 x per day and bring records. Hypoglycemia symptoms and treatment reviewed with patient. Call if having low sugars. Ophthalmology exam on regular basis. Assessment & Plan (12/09/2020 10:02 AM TOP SCREW): Control : in reasonable control without frequent hypoglycemia A1c 6.8% on 12/09/20 A1c 6.8% on 05/07/2020 A1c 7.4% on 01/29/2020. A1c 7.3% on 07/24/19. A1c 6.9% on 04/25/19. A1c 7.4% on 01/14/19 Kidney: CKD with GFR 39 on 10/24/20 Followed by her PCP Neuropathy : none Plan: Continue diet plan. Continue same dose of Lantus Continue Humalog with meals. She can take extra 2 units of Humalog with dinner( 20 units) with high carb meal. Monitor sugars 3-4 x per day and bring records. Hypoglycemia symptoms and treatment reviewed with patient. Call if having low sugars. Ophthalmology exam on regular basis. Assessment & Plan (08/05/2020 9:44 AM CDT): Control : fluctuation in sugars based on diet, Mild fasting hyperglycemia A1c 6.8% on 05/07/2020 A1c 7.4% on 01/29/2020. A1c 7.3% on 07/24/19. A1c 6.9% on 04/25/19. A1c 7.4% on 01/14/19 A1c 7.1% on 07/02/18, was 6.6% on 03/22/18 A1c was 6.8% on 12/21/17 A1c was 7.0% on 09/13/17 Kidney: CKD with GFR 38 on 05/07/20. Followed by her PCP Neuropathy : none Plan: Continue diet plan. Continue same dose of Lantus Continue Humalog with meals. She can take extra 2 units of Humalog with dinner( 20 units) with high carb meal. Monitor sugars 3-4 x per day and bring records. Hypoglycemia symptoms and treatment reviewed with patient. Call if having low sugars. Ophthalmology exam on regular basis. Assessment & Plan (04/15/2020 9:33 AM CDT): Control : fluctuation in sugars based on diet, Mild fasting hyperglycemia A1c 7.4% on 01/29/2020. A1c 7.3% on 07/24/19. A1c 6.9% on 04/25/19. A1c 7.4% on 01/14/19 A1c 7.1% on 07/02/18, was 6.6% on 03/22/18 A1c was 6.8% on 12/21/17 A1c was 7.0% on 09/13/17 Kidney: CKD with GFR 39 on 01/29/2020. Followed by her PCP Neuropathy : none Plan: Patient asked to watch diet. Decrease intake of fruits. Can increase lantus insulin if am sugars still above target, but may improve as patient will start exercise.. Continue Humalog with meals. She can take extra 2 units of Humalog with dinner( 20 units) with high carb meal. Monitor sugars 3-4 x per day and bring records. Hypoglycemia symptoms and treatment reviewed with patient. Call if having low sugars. Ophthalmology exam on regular basis. Resolved Problems Problem Noted Date Diagnosed Date Resolved Date Uncontrolled type 2 diabetes mellitus with hyperglycemia, with long-term current use of insulin 06/07/2017 04/15/2020 Surgical History Surgery Date Site/Laterality Comments EYE SURGERY 11/20/2017 - 11/19/2018 Bilateral cataract removed TUBAL LIGATION FOOT NEUROMA SURGERY Right ANKLE SURGERY 05/12/2023 Left COLONOSCOPY Medical History Medical History Date Comments Allergic rhinitis Diabetes (HCC) Hypertension Thyroid disease HL (hearing loss) right ear no h earing Tinnitus Snoring Ankle fracture 05/04/2023 Closed trimalleo lar fracture of left ankle- has hard cast on using wheelchair and knee scooter Delayed emergence from gener al anesthesia slow to wake PONV (postoperative nausea a nd vomiting) Type 2 diabetes mellitus (HCC) Hypothyroidism Sleep apnea does night wear machine Hyperlipidemia Chronic kidney disease stage 3 Uses walker Heart murmur Family History Medical History Relation Name Comments Cancer Brother Coronary artery disease Brother Juan David nary artery disease; Lymphoma Father Lymphoma; Diabetes Mother Diabetes mellit us; Cancer Sister Relation Name Status Comments Brother Father Mother Sister Social History Tobacco Use Types Packs/Day Years Used Date Smoking Tobacco: Never Smokeless Tobacco: Never Tobacco Cessation:Counseling Given: Not Answered Social Connection and Isolat ion Panel [NHANES] Answer Date Recorded In a typical week, how many times do you talk on the phone with family, friends, or neighbors? More than three times a week 07/04/2023 How often do you get togethe r with friends or relatives? More than three times a week 07/04/2023 How often do you attend chur ch or jew services? More than 4 times per year 07/04/2023 Do you belong to any clubs o r organizations such as bahai groups, unions, fraternal or athletic groups, or school groups? No 07/04/2023 How often do you attend meet ings of the clubs or organizations you belong to? Never 07/04/2023 Marital Status Not on file 07/04/2023 AUDIT-C Answer Date Recorded Frequency of Alcohol Consumption Not on file 04/19/2024 Q2: How many drinks containi ng alcohol do you have on a typical day when you are drinking? Patient does not drink Q3: How often do you have si x or more drinks on one occasion? Never 04/19/2024 Overall Financial Resource Strain (CARDIA) Answe r Date Recorded How hard is it for you to pa y for the very basics like food, housing, medical care, and heating? Not hard at all 07/04/2023 Hunger Vital Sign Answer Date Recorded Within the past 12 months, y ou worried that your food would run out before you got the money to buy more. Never true 07/04/20 23 Within the past 12 months, t he food you bought just didn't last and you didn't have money to get more. Never true 07/04/2023 PRAPARE - Transportation Answer Date Re corded In the past 12 months, has l ack of transportation kept you from medical appointments or from getting medications? No 06/20 In the past 12 months, has l ack of transportation kept you from meetings, work, or from getting things needed for daily living? No 07/04/2023 Housing Stability Vital Sign Answer Josh e Recorded In the last 12 months, was t here a time when you were not able to pay the mortgage or rent on time? No 07/04/2023 In the last 12 months, how many places have you lived? 1 07/04/2023 In the last 12 months, was t here a time when you did not have a steady place to sleep or slept in a residential (including now)? No 07/04/2023 Personal Safety Answer Date Recorded Have you ever been in or are you currently in a harmful physical or emotional relationship or is someone making you feel afraid or unsafe? Denies 04/19/2024 Comments No Sex and Gender Information Value Date Recorded Sex Assigned at Not on file Legal Sex Female 12:06 AM TOP SCREW Gender Identity Not on file Sexual Orientation Not on file Obstetrics History Last Filed Vital Signs Vital Sign Reading Time Taken Comments Blood Pressure 134/56 04/19/2024 10:10 AM CDT Pulse 60 04/19/2024 10:10 AM CDT Temperature 36.4 C (97.5 F) 04/19/2024 9:40 AM CDT Respiratory Rate 18 04/19/2024 10:10 AM CDT Oxygen Saturation 100% 04/19/2024 10:10 AM CDT Inhaled Oxygen Concentration - - Weight 62.6 kg (138 lb) 05/06/2024 9:23 AM CDT Height 157.5 cm (5' 2 ) 05/06/2024 9:23 AM CDT Body Mass Index 25.24 05/06/2024 9:23 AM CDT Plan of Treatment Health Maintenance Due Date Last Done Comments Hepatitis C Screening 1945 Osteoporosis Screening-Bone Density Scan 1945 DTaP/Tdap/Td Vaccine (1 - Tdap) 01/28/1956 Hepatitis B Screening 1963 Well Visit 65+ 2010 Depression Screening 06/06/2019 06/06/2018 Pneumococcal vaccine 65+ (2 of 2 - PPSV23 or PCV20) 09/15/2020 07/21/2020 Dilated Eye Exam 07/13/2023 07/13/2021, , 02/19/2019, Additional history exists Lipid Panel 08/25/2023 08/25/2022, 03/21, 06/03/2021, Additional history exists Albumin Creatinine Ratio, Urine 11/23/2023 3, 05/06/2020 Hemoglobin A1C 01/03/2024 07/03/2023, 12/22, 09/06/2022, Additional history exists Foot Exam 01/09/2024 01/09/2023, 08/20, 05/05/2022, Additional history exists eGFR 07/07/2024 07/07/2023, 06/20, 07/04/2023, Additional history exists Influenza Vaccine (#1) 2024 , 08/23/2019, 08/02/2018, Additional history exists Fall Risk Assessment 04/19/2025 04/19/2024, 06/06/20 18 Zoster Vaccine Completed 05/02/2019, 01/18/2019 Medical Devices Implanted Type Area Photographic Spotter Device Identifier Shelf Expiration Date Model / Serial / Lot Lifenet Vivigen Allograft Graft 1 Cc Bone Cortical Cancellous Deminerali Bl-1500-001 - [id number] - [id number] Implanted:Qty: 1 on 05/12/2023 by Andrea Goetz DO at [facility] Bone Left: Ankle Lifenet [id number] 04/25/2024 BL-1500-00 1 / [id number] / Explanted Type Area Photographic Spotter Device Identifier Shelf Expiration Date Model / Serial / Lot Synthes 3.5mm 6mm 16mm 2.5mm Self Tap Small Hexagonal Socket Low Profile 204.816 - [id number] Explanted:Qty: 2 on 05/12/2023 by Andrea Goetz DO at [facility] Left: Ankle Synthes I 204.816 / / Synthes 3.5mm 2.9mm 50mm Self Tap Lock Stardrive Conical Head T15 Full 212.121 - [id number] Implanted:Qty: 1 on 05/12/2023 by Andrea Goetz DO at [facility] Explanted:Qty: 1 on 09/08/2023 by Andrea Goetz DO at [facility] Left: Ankle Synthes I 212.121 / / Synthes Lcp Combi 177mm 11 Hole Fibula Left Distal Lateral Contour Plate [id number] - [id number] Implanted:Qty: 1 on 05/12/2023 by Andrea Goetz DO at [facility] Explanted:Qty: 1 on 04/19/2024 by Andrea Goetz DO at [facility] Left: Ankle Synthes I 02.112.153 / / Synthes 7mm Washer [employer] Stain[employer] Nonsterile 219.98 - [id number] Implanted:Qty: 1 on 05/12/2023 by Andrea Goetz DO at [facility] Explanted:Qty: 1 on 04/19/2024 by Andrea Goetz DO at [facility] Left: Ankle Synthes I 219.98 / / Synthes 3.5mm 5mm 1.35mm 50mm Cannulated Low Profile Hemispherical Head 205.250 - [id number] Implanted:Qty: 1 on 05/12/2023 by Andrea Goetz DO at [facility] Explanted:Qty: 1 on 04/19/2024 by Andrea Goetz DO at [facility] Left: Ankle Synthes I 205.250 / / Synthes 2.7mm 2.1mm 14mm Self Tap Lock Stardrive Thread Head Profile T8 202.214 - [id number] Implanted:Qty: 4 on 05/12/2023 by Andrea Goetz DO at [facility] Explanted:Qty: 4 on 04/19/2024 by Andrea Goetz DO at [facility] Left: Ankle Synthes I 202.214 / / Synthes 2.7mm 2.1mm 10mm Self Tap Lock Stardrive Thread Head Profile T8 202.210 - [id number] Implanted:Qty: 1 on 05/12/2023 by Andrea Goetz DO at [facility] Explanted:Qty: 1 on 04/19/2024 by Andrea Goetz DO at [facility] Left: Ankle Synthes I 202.210 / / Synthes 3.5mm 2.9mm 12mm Self Tap Lock Stardrive Conical Head T15 Full 212.102 - [id number] Implanted:Qty: 4 on 05/12/2023 by Andrea Goetz DO at [facility] Explanted:Qty: 4 on 04/19/2024 by Andrea Goetz DO at [facility] Left: Ankle Synthes I 212.102 / / Procedures Procedure Name Priority Date/Time Associated Diagnosis Comments EGFR Timed 07/07/2023 5:33 AM CDT HEMOGLOBIN A1C Routine 07/03/2023 6:18 AM CDT ALBUMIN CREATININE RATIO, URINE Routine 11/23/2022 LIPID PANEL Routine 08/25/2022 DIABETIC EYE EXAM Routine 07/13/2021 HM DIABETES FOOT EXAM Routine 01/31/2018 from Last 3 Months or Most Recently Relevant to Health Maintenance Results * eGFR (07/07/2023 5:33 AM CDT) eGFR 51 mL/min/1. 73 m2 [facility] PRICE Comment: Interpretive Data Reference Interval Normal >/= 90 mL/min/1.73m2 Mildly decreased* 60 - 89 mL/min/1.73m2 Mildly to moderately decreased 45 - 59 mL/min/1.73m2 Moderately to severely decreased 30 - 44 mL/min/1.73m2 Severely decreased 15 - 29 mL/min/1.73m2 Kidney Failure < 15 mL/min/1.73m2 *Relative to young adult level Estimated glomerular filtration rate is determined by the 2020 CKD-EPI equation recommended by the National Kidney Foundation (A Unifying Approach to GFR Estimation: Recommendations of the NKF-ASK Task Force on Reassessing the Inclusion of Race in Diagnosing Kidney Disease, JASN 2020). The CKD-EPI equation should not be used for patients with unstable renal function and has not been validated in children and those over 70. Current interpretive data was last reviewed 2021. Blood 07/07/2023 5:33 AM CDT 07/07/2023 5:59 AM CDT us Abbey Wallace MD LAB BLOOD ORDERABLES Final Resul t DENISE PRICE [address] [facility] Department [place] [address] * (ABNORMAL) Hemoglobin A1c (07/03/2023 6:18 AM CDT) Hgb A1C 6.1(H) 4.0 - 5.6 % [facility] PRICE Estimated Average Glucose 128 mg/dL [facility] PRICE Comment: The ADA recommends reporting an estimated Average Glucose (eAG) with all Hemoglobin A1c results using the equation derived from a study of 507 normal and diabetic adults. Minority populations were underrepresented and children were not included. (Diabetes Care 31:5419-0826, 2008). The eAG is not equivalent to a fasting glucose. Blood 07/03/2023 6:18 AM CDT 07/03/2023 7:29 AM CDT Result [facility] Matt Fermin MD LAB BLOOD ORDERABLES Final Result Performing Organization Address [facility] Co de Phone Number DENISE [address] [facility] Department [place] [address] * Albumin Creatinine Ratio, Urine (11/23/2022) Pathologist [facility] SCRIBED Creatinine, Urine 126 - - - [facility] SCRIB[facility] Microalbumin 54 - - - [facility] SCRIBED Microalb/Creat Ratio 429 [facility] Urine 11/23/2022 Result [facility] Provider LAB URINE ORDERABLES Azeb l Result Performing Organization Address [facility] Co de Phone Number [facility] * (ABNORMAL) Lipid panel (08/25/2022) Pathologist [facility] SCRIBED Cholesterol, Total 175 30 - 200 [facility] SCRIBED HDL 57(A) 0 - 40 [facility] SCRIBED LDL 96 0 - 129 [facility] SCRIB[facility] Triglycerides 122 0 - 149 [facility] Blood 08/25/2022 Result [facility] Historical Yuri VEGAS LAB BLOOD ORDERABLES Azeb l Result Performing Organization Address [facility] Co de Phone Number [facility] * Diabetic Eye Exam (07/13/2021) Result [facility] Historical Provider HEALTH MAINTENANCE Final Result * DIABETES FOOT EXAM (01/31/2018) [facility] Diabetic Foot Exam Unknown us Historical Provider MD HEALTH MAINTENANCE Final Result from Last 3 Months or Most Recently Relevant to Health Maintenance Insurance [facility] MEDICARE MEDICARE [facility] MEDICARE [facility] MEDICARE [place] [address] MEDICARE [facility] Advance Directives For more information, please contact: [phone] * Full Code (Latest Code Status on File) Date Activated Date Inactivated Comments 07/02/2023 7:12 PM 07/07/2023 9:33 PM * Full Code Date Activated Date Inactivated Comments 05/13/2023 7:21 AM 05/13/2023 5:07 PM Care Teams Manager Category Relationship Specialty Start Date End Date Jewels Brown MD PCP - General Family Medicine 12/09/20 Milton Rose MD Referring Physician Nephrology 05/10/23 Tae Boswell MD [address] [facility] [address] [place] [address] [place] [id number] Consulting Physician Endocrinology 05/10/23 Tati Bragg PA [address] [facility] [address] [place] [address] [place] [id number] Orthopedic Surgery 09/08/23
--- OUTSIDE RECORDS SUMMARY | 2025-01-03 09:01 | XMS_ITS | Clinical Summary ---
Author Organization [facility] Address [address] [place] [id number] Care Team Providers Care Radiology Technologist Name Role Phone Unavailable Primary Care Provider Unavailabl e Social History Tobacco Use Types Packs/Day Years Used Date Smoking Tobacco: Never Assessed Comments Unknown Sex and Gender Information Value Date Recorded Sex Assigned at Not on file Legal Sex Female 7:55 PM CDT Gender Identity Not on file Sexual Orientation Not on file Plan of Treatment Health Maintenance Due Date Last Done Comments Hepatitis C 1963 DTaP, Tdap and Td Vaccines ( 1 - Tdap) 01/28/1964 Zoster Vaccines (1 of 2) 1995 Dexa Scan (General) 2010 Pneumococcal Vaccine: 65+ Ye ars (1 of 1 - PCV) 2010 RSV Immunization or 60+ Years (1 - 1-dose 75+ series) 01/28/2020 COVID-19 Vaccine (2023-2 5 season) 2024 Influenza Adult (#1) 2024 Meningococcal B Vaccine Aged Out No l onger eligible based on patient's age to complete this topic Meningococcal Vaccine Aged Out No blanca margaux eligible based on patient's age to complete this topic RSV Immunizations Under 20 Months Aged Out No longer eligible based on patient's age to complete this topic
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
--- OUTSIDE RECORDS SUMMARY | 2025-01-03 09:01 | XMS_ITS | Clinical Summary ---
Author Organization [facility] Administrative [facility]ices Address [address] [place] [address] Care Team Providers Care Attending Urologist Name Role Phone Jewels Brown MD Primary Care Provider [phone] Allergies No known active allergies Medications amLODIPine (NORVASC) 10 mg tablet 3 Active hydrALAZINE (APRESOLINE) 10 mg tablet Take 10 mg by mouth 2 times daily. 3 Active Lantus Solostar U-100 Insulin 100 unit/mL (3 mL) solution for injection 3 Active HumaLOG KwikPen Insulin 100 unit/mL pen syringe 3 Active levothyroxine 88 mcg tablet 3 Active losartan (COZAAR) 100 mg tablet 3 Active meclizine (ANTIVERT) 25 mg tablet 3 Active spironolactone -hydroCHLOROth iazide (ALDACTAZIDE) 25-25 mg Tablet 3 Active atorvastatin (LIPITOR) 40 mg tablet 3 Active insulin lispro (HumaLOG) 100 unit/mL pen syringe INJECT SUBCUTANEOUSLY DIRECTED UP TO A MAXIMUM DAILY DOSE OF 40 UNITS 2 Active cetirizine (ZyrTEC) 10 mg tablet Take 10 mg by mouth daily. Active Active Problems No known active problems Encounters Date Type Department Care Team Description 12/17/2024 External Device Data [facility] ABSTRACTION Provider, Abstract 12/11/2024 External Device Data [facility] ABSTRACTION Provider, Abstract 12/11/2024 External Device Data [facility] ABSTRACTION Provider, Abstract from Last 3 Months Family History Medical History Relation Name Comments Heart Disease Brother 1 Prostate Cancer Brother 4 Melanoma Daughter Lymphoma Father Diabetes Mother Heart Disease Mother Osteosarcoma Sister 1 Breast Cancer Sister 2 No Known Problems Sister 3 Breast Cancer Sister 4 Relation Name Status Comments Brother 1 Brother 2 Alive Brother 3 Alive Brother 4 Alive Daughter Alive Father Mother Sister 1 Sister 2 Sister 3 Alive Sister 4 Alive Social History Tobacco Use Types Packs/Day Years Used Date Smoking Tobacco: Never Smokeless Tobacco: Never Tobacco Cessation:Counseling Given: Not Answered Alcohol Use Standard Drinks/Week Comments Never 0 (1 standard drink = 0.6 oz pur e alcohol) Comments Unknown Sex and Gender Information Value Date Recorded Sex Assigned at Not on file Legal 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 Gender Identity Not on file Sexual Orientation Not on file Last Filed Vital Signs Vital Sign Reading Time Taken Comments Blood Pressure 168/85 02/29/2024 11:02 AM CDT Pulse 62 02/29/2024 11:00 AM CDT Temperature 36.6 C (97.8 F) 02/29/2024 11:00 AM CDT Respiratory Rate 14 02/29/2024 11:00 AM CDT Oxygen Saturation 98% 02/29/2024 11:00 AM CDT Inhaled Oxygen Concentration - - Weight 62.6 kg (138 lb) 02/29/2024 11:00 AM CDT Height 161.5 cm (5' 3.6 ) 02/15/2023 2:47 PM CDT Body Mass Index 23.99 02/15/2023 2:47 PM CDT Plan of Treatment Upcoming Encounters Date Type Department Care Team (Late st Contact Info) Description 03/04/2025 11:00 AM CDT Office Visit [facility] Oncology and Hematology - [place] [address] [facility] [address] [place] [address] Anil Jay MD [address] [facility] [address] [place] [address] Health Maintenance Due Date Last Done Comments DIABETES MICROALBUMIN ANNUAL SCREEN 1963 LDL CHOLESTEROL ANNUAL 1963 DTAP/TDAP/TD VACCINES (1 - Tdap) 01/28/1964 ZOSTER VACCINE (1 of 2) 1995 RSV VACCINE (60+ or ) (1 - 1-dose 75+ series) 01/28/2020 PNEUMOCOCCAL VACCINE 65+ YEA RS (2 of 2 - PPSV23) 09/15/2020 07/21/2020 DIABETES ANNUAL FOOT EXAM 01/09/2024 01/09/2023 INFLUENZA VACCINE (#1) 2024 08/19/2022 DIABETES HBA1C Q 6 MONTHS 11/20/20242023, 10/25/2023, 07/03/2023, Additional history exists DIABETES ANNUAL RETINAL EXAM 11/21/202412/2023, 11/21/2023, 07/19/2022, Additional history exists OSTEOPOROSIS SCREENING Completed 06/30/2022, 2019 Insurance MEDICARE PART A AND B [facility] [id number] MEDICARE PART A AND B [facility] [id number] Care Teams Attending Urologist Relationship Specialty Start Date End Date Jewels Brown MD [address] [place] [address] PCP - General Family Practice 02/15/23
--- OUTSIDE RECORDS SUMMARY | 2025-01-03 09:01 | XMS_ITS | Encounter Summary ---
Author Organization [facility] Address 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 Gender Identity Not on file Sexual Orientation Not on file documented as of this encounter Plan of Treatment Upcoming Encounters Date Type Department Care Team (Late st Contact Info) Description 03/04/2025 11:00 AM CDT Office Visit [facility] Oncology and Hematology - [place] [address] [place] [address] [address] Anil Jay MD [address] [facility] [address] [place] [address] documented as of this encounter Visit Diagnoses Diagnosis Lumbago- Primary documented in this encounter Care Teams Biscuitware Brusher Relationship Specialty Start Date End Date Jewels Brown MD [address] [place] [address] PCP - General Family Practice 02/15/23 documented as of this encounter
--- OUTSIDE RECORDS SUMMARY | 2025-01-03 09:02 | XMS_ITS ---
Author Organization [facility] Address [address] [place] [address] Care Team Providers Care Rattlesnake Farmer Name Role Phone Jewels Brown Primary Care Provider UnavailYariel Odom Unavailable [phone] Parisa Dillon [phone] REASON FOR VISIT ARC follow-up Encounters Encounter Location Date Provider Diagnosis [facility] [address] [place] [address] 01/29/2024 Parisa Dillon Plan Of Treatment No Information Progress Notes * Wiliam DEOB:1945 (79 yo F)Acc No.[id number]:01/29/2024 Progress Notes Patient: Mirta PERALTA Provider: GAURANG Livingston :1945 A ge:79 Y S ex:Female Date:01/29/2024 Address[address] [facility] Pcp:Jewels Brown Subjective: * Chief Complaints: * 1 . ARC follow-up. * Medical History: Objective: * Vitals: Assessment: Plan: * Treatment: * Billing Information: * Visit Code: * Procedure Codes: * Electronic signature of Parisa Dillon DNP, FNP-C on 01/03/2025 at 09:01 AM DONOR RELATIONS COORDINATOR Sign off status: Pending * Provider: Hipolito Dillon DNP 911 DISPATCHER-C Date: 0 01/29/2024 Generated for Ofe murray/Sami/Aimee on: 0 01/03/2025 09:01 AM DONOR RELATIONS COORDINATOR
--- OUTSIDE RECORDS SUMMARY | 2025-01-03 09:02 | XMS_ITS | Clinical Summary ---
Author Organization [facility] utisamy Address [address] [place] [id number] Phone Care Team Providers Care Administrative Clerk Name Role Phone Jewels Brown MD Primary Care Provider Allergies Active Allergy Reactions Criticality Noted Date Comments Propoxyphene Other (see comments) 10/24/2022 Reaction: Unknown, Medications Medication Sig Dispensed Refills Start Date End Date Status amLODIPine (NORVASC) 10 MG tablet 09/19/2022 Active atorvastatin (LIPITOR) 40 MG tablet 11/20/2017 Active carBAMazepine (TEGretol) 200 MG tablet Take 200 mg by mouth 1 (one) time each day if needed Half daily prn Tic in right eye 03/30/2017 Active hydrALAZINE (APRESOLINE) 10 MG tablet Take 10 mg by mouth in the morning and 10 mg before bedtime. 10/14/2022 Active Lantus SoloStar 100 UNIT/ML injection 09/15/2022 Active Insulin Lispro, 1 Unit Dial, 100 UNIT/ML solution pen-injector INJECT SUBCUTANEOUSLY DIRECTED UP TO A MAXIMUM DAILY DOSE OF 40 UNITS 09/15/2022 Active Insulin Pen Needle (BD Pen Needle Lola U/F) 32G X 4 MM misc Use with insulin 4 x daily 06/14/2021 Active levothyroxine (SYNTHROID) 88 MCG tablet 09/19/2022 Active losartan (COZAAR) 100 MG tablet 09/07/2017 Active meclizine (ANTIVERT) 25 MG tablet daily 09/07/2017 Active spironolactone-hyd roCHLOROthiazide (ALDACTAZIDE) 25-25 MG per tablet 08/22/2017 Active Active Problems Problem Noted Date Diagnosed Date Chronic kidney disease stage 3B 10/22/2022 Acquired hypothyroidism 12/09/2020 Type 2 diabetes mellitus 01/31/2018 Overview (10/22/2022): Last Assessment & Plan: Control : in good conrol, without frequent hypoglycemia A1c 6.5% on 09/06/22 [...] Problem Noted Date Diagnosed Date Resolved Date Essential hypertension 04/15/202010/24 Overview (10/22/2022): Last Assessment & Plan: Controlled with medication including Losartan - continue low salt diet - continue same medication per PCP Mixed hyperlipidemia 04/15/2020 022 Overview (10/22/2022): Last Assessment & Plan: Under control with Lipitor Being monitored by PCP - continue same medication. Immunizations Name Administration Dates Next Due Influenza TIV (IM) 08/19/2022 Pneumococcal Conjugate 13-Valent 07/21/2020 Family History Medical History Relation Comments Kidney disease Neg Hx Social History Tobacco Use Types Packs/Day Years Used Date Smoking Tobacco: Never Smokeless Tobacco: Never Tobacco Cessation:Counseling Given: Not Answered Alcohol Use Standard Drinks/Week Comments Not Currently 0 (1 standard drink = 0.6 oz pur e alcohol) Sex and Gender Information Value Date Recorded Sex Assigned at Not on file Gender Identity Not on file Sexual Orientation Not on file Last Filed Vital Signs Vital Sign Reading Time Taken Comments Blood Pressure 160/62 10/24/2022 10:03 AM METALIZER Pulse 60 10/24/2022 10:03 AM METALIZER Temperature 35.7 C (96.3 F) 10/24/2022 10:03 AM METALIZER Respiratory Rate - - Oxygen Saturation - - Inhaled Oxygen Concentration - - Weight 63.5 kg (140 lb) 10/24/2022 10:03 AM METALIZER Height 162.6 cm (5' 4 ) 10/24/2022 10:03 AM METALIZER Body Mass Index 24.03 10/24/2022 10:03 AM METALIZER Plan of Treatment Health Maintenance Due Date Last Done Comments Diabetic Foot Exam 1955 Ophthalmology Exam 1955 Pneumococcal PPSV23/PCV13 65 + Years / High and Highest Risk (2 of 4 - PPSV23 or PCV20) 09/15/2020 07/21/2020 Influenza Vaccine (#1) 2024 08/19/2022 Care Teams Administrative Clerk Relationship Specialty Start Date End Date Jewels Brown MD [address] [place] [address] PCP - General Internal Medicine 10/17/22
--- OUTSIDE RECORDS SUMMARY | 2025-01-03 09:02 | XMS_ITS | Referral Summary ---
Author Organization [facility] Address [address] [place] [address] Care Team Providers Care Jewel Hole Gauger Name Role Phone Jewels Brown MD Primary Care Provider [phone] Milton Rose MD Unavailable [phone] Tae Boswell MD Unavailable [phone] Tati Bragg Unavailable [phone] Allergies Active Allergy Reactions Criticality Noted Date [...] 1 tablet (88 mcg total) by mouth medical i d sales before breakfast 2 tablets 09/07/20 17 Active [...] plan. Assessment & Plan (09/25/2023 9:45 AM INSPECTOR PURCHASED PARTS): Patient is doing very well overall. X-rays [...] 05/12/2023 Assessment & Plan (11/27/2023 9:01 AM INSPECTOR PURCHASED PARTS): Patient is doing well overall but still [...] weeks. Her pain is well controlled with Imogene and OTC pain medications, she does not [...] therapy. For her pain, I renewed her Imogene prescription with instructions to wean off when [...] 04/15/2020 Assessment & Plan (01/09/2023 10:08 AM INSPECTOR PURCHASED PARTS): Controlled with medication including Losartan - continue [...] PCP Assessment & Plan (01/03/2022 10:14 AM INSPECTOR PURCHASED PARTS): Controlled with medication including Losartan - continue [...] medication Assessment & Plan (12/09/2020 10:02 AM INSPECTOR PURCHASED PARTS): Under control with medication including Losartan - [...] 01/31/2018 Assessment & Plan (01/09/2023 10:08 AM INSPECTOR PURCHASED PARTS): Control : in good tim, without frequent [...] basis. Assessment & Plan (01/03/2022 10:13 AM INSPECTOR PURCHASED PARTS): Control : in good conrol, but no [...] basis. Assessment & Plan (12/09/2020 10:02 AM INSPECTOR PURCHASED PARTS): Control : in reasonable control without frequent [...] long-term current use of insulin 06/07/2017 04/15/2020 Social History Tobacco Use Types Packs/Day Years [...] any clubs o r organizations such as uatsdin groups, unions, fraternal or athletic groups, or [...] place to sleep or slept in a snf (including now)? No 07/04/2023 Personal Safety Answer Date Recorded Have you ever been in or are you currently in a harmful physical or emotional relationship or is someone making you feel afraid or unsafe? Denies 04/19/2024 Comments No Sex and Gender Information Value Date Recorded Sex Assigned at Not on file Legal Sex Female 12:06 AM INSPECTOR PURCHASED PARTS Gender Identity Not on file Sexual Orientation [...] 05/06/2024 9:23 AM CDT Plan of Treatment Not on file Medical Devices Implanted Type Area Banking Consultant Device Identifier Shelf Expiration Date Model / Serial / Lot Lifenet Vivigen Allograft Graft 1 Cc Bone Cortical Cancellous Deminerali Bl-1500-001 - [id number] - [id number] Implanted:Qty: 1 on 05/12/2023 by Andrea Goetz DO at [facility] Bone Left: Ankle Lifenet [id number] 04/25/2024 BL-1500-00 1 / [id number] / Explanted Type Area Banking Consultant Device Identifier Shelf Expiration Date Model / Serial / Lot Synthes 3.5mm 6mm 16mm 2.5mm Self Tap Small Hexagonal Socket Low Profile 204.816 - [id number] Explanted:Qty: 2 on 05/12/2023 by Andrea Goetz DO at [facility] Left: Ankle Synthes I 204.816 / / Synthes 3.5mm 2.9mm 50mm Self Tap Lock Stardrive Conical Head T15 Full 212.121 - [id number] Implanted:Qty: 1 on 05/12/2023 by Andrea Goetz DO at [facility] Explanted:Qty: 1 on 09/08/2023 by Andrea Goetz DO at [facility] Left: Ankle Synthes I 212.121 / / Synthes Lcp Combi 177mm 11 Hole Fibula Left Distal Lateral Contour Plate 02.112.153 - [id number] Implanted:Qty: 1 on 05/12/2023 by Andrea Goetz DO at [facility] Explanted:Qty: 1 on 04/19/2024 by Andrea Goetz DO at [facility] Left: Ankle Synthes I 02.112.153 / / Synthes 7mm Washer Orthopedic Stainless Steel Nonsterile 219.98 - [id number] Implanted:Qty: 1 on 05/12/2023 by Andrea Goetz DO at [facility] Explanted:Qty: 1 on 04/19/2024 by Andrea Goetz DO at [facility] Left: Ankle Synthes I 219.98 / / Synthes 3.5mm 5mm 1.35mm 50mm Cannulated Low Profile Hemispherical Head 205.250 - [id number] Implanted:Qty: 1 on 05/12/2023 by Andrea Goetz DO at [facility] Explanted:Qty: 1 on 04/19/2024 by Andrea Goetz DO at [facility] Left: Ankle Synthes I 205.250 / / Synthes 2.7mm 2.1mm 14mm Self Tap Lock Stardrive Thread Head Profile T8 202.214 - [id number] Implanted:Qty: 4 on 05/12/2023 by Andrea Goetz DO at [facility] Explanted:Qty: 4 on 04/19/2024 by Andrea Goetz DO at [facility] Left: Ankle Synthes I 202.214 / / Synthes 2.7mm 2.1mm 10mm Self Tap Lock Stardrive Thread Head Profile T8 202.210 - [id number] Implanted:Qty: 1 on 05/12/2023 by Andrea Goetz DO at [facility] Explanted:Qty: 1 on 04/19/2024 by Andrea Goezt DO at [facility] Left: Ankle Synthes I 202.210 / / Synthes 3.5mm 2.9mm 12mm Self Tap Lock Stardrive Conical Head T15 Full 212.102 - [id number] Implanted:Qty: 4 on 05/12/2023 by Andrea Goetz DO at [facility] Explanted:Qty: 4 on 04/19/2024 by Andrea Goetz DO at [facility] Left: Ankle Synthes I 212.102 / / [...] BLOOD ORDERABLES Final Resul t DENISE PRICE [address] [facility] Department [place] [address] * (ABNORMAL) Hemoglobin A1c (07/03/2023 [...] and children were not included. (Diabetes Care 31:1810-8011, 2008). The eAG is not equivalent to a fasting glucose. Blood 07/03/2023 6:18 AM CDT 07/03/2023 7:29 AM CDT Result [facility] Matt Fermin MD LAB BLOOD ORDERABLES Final Result Performing Organization Address [facility] Co de Phone Number [facility]ISE [facility] Department [place] [address] * Albumin Creatinine Ratio, Urine (11/23/2022) Pathologist [facility] SCRIBED Creatinine, Urine 126 - - - [facility] SCRIBED Microalbumin 54 - - - [facility] SCRIBED Microalb/Creat Ratio 429 [facility] Urine 11/23/2022 Result [facility] Provider LAB URINE ORDERABLES Azeb l Result Performing Organization Address [facility] de Phone Number [facility] * (ABNORMAL) Lipid panel (08/25/2022) Pathologist [facility] SCRIBED Cholesterol, Total 175 30 - 200 [facility] SCRIBED HDL 57(A) 0 - 40 [facility] SCRIBED LDL 96 0 - 129 [facility] SCRIBED Triglycerides 122 0 - 149 [facility] Blood 08/25/2022 Result [facility] Historical Provider LAB BLOOD ORDERABLES Azeb l Result Performing Organization Address [facility] Co de Phone Number [facility] * Diabetic Eye Exam (07/13/2021) Historical Provider HEALTH MAINTENANCE Final Result * DIABETES FOOT EXAM (01/31/2018) Pathologist [facility] Diabetic Foot Exam Unknown Historical Yuri VEGAS HEALTH MAINTENANCE Final Result from Last 3 Months or Most Recently Relevant to Health Maintenance Insurance [facility] MEDICARE MEDICARE [facility] MEDICARE [facility] MEDICARE [place] [address] MEDICARE [facility] MRA Advance Directives For more information, please contact: [phone] * Full Code (Latest Code Status on File) Date Activated Date Inactivated Comments 07/02/2023 7:12 PM 07/07/2023 9:33 PM * Full Code Date Activated Date Inactivated Comments 05/13/2023 7:21 AM 05/13/2023 5:07 PM Care Teams Jewel Hole Gauger Relationship Specialty Start Date End Date Jewels Brown MD PCP - General Family Medicine 12/09/20 Milton Rose MD Referring Physician Nephrology 05/10/23 Tae Boswell MD [address] [place] [address] [place] [id number] Consulting Physician Endocrinology 05/10/23 Tati Bragg PA [address] [place] [address] [place] [id number] Orthopedic Surgery 09/08/23
--- NOTE | 2025-01-03 09:07 | ECG_ITS ---
Test Date: 2025-01-03 09:20:52 Measurements Intervals [place] Rate: 55 P: 26 CT: 161 QRS: -18 QRSD: 94 T: 13 QT: 445 QTc: 428 Interpretive Statements SINUS BRADYCARDIA WITH OCCASIONAL SUPRAVENTRICULAR PREMATURE COMPLEXES INCOMPLETE RIGHT BUNDLE BRANCH BLOCK INFERIOR INFARCT, AGE INDETERMINATE ABNORMAL ECG No previous ECG available for comparison Electronically Signed On 01-03-2025 10:05:12 WHEEL PRESSER by Dallas Garcia D.O.
[2025-01-03 10:33] LABS: Anion Gap 11 mmol/L (4-12); Blood Urea Nitrogen 33 mg/dL (7-17); Carbon Dioxide 20 mmol/L (22-30); Chloride 108 mmol/L (98-107); Estimated Glomerular Filt Rate 39; Glucose 113 mg/dL (65-110); Potassium 5.2 mmol/L (3.4-5.0); Sodium 139 mmol/L (137-145)
== END 2025-01-03 08:54 | disposition home or self-care (01) ==
LOC: ANHLAB 08:56
PROVIDERS: PCP Family Medicine; Visit Provider Anesthesiology
DX: Z01.818 Encounter for other preprocedural examination (principal); I45.10 Unspecified right bundle-branch block
CPT/HCPCS: 36415; 80048; 93005

== ENCOUNTER 2025-01-16 07:37 | Day surgery (SDC) | payer MEDICARE, SELFPAY ==
[2024-12-31 08:48] VITALS: BMI 23.6
--- NOTE | 2024-12-31 14:08 | PC.NURSE ---
Chart reviewed by Dr. Mosquera 12/30/2024. OK for pt to come to [facility].
--- NOTE | 2025-01-08 07:23 | PC.NURSE ---
Pt scheduled for L CTR by Dr Howe on 01/13/25. Pre Op BMP and EKG completed 01/03/25. Dr Mosquera notified of results. Ok to proceed with L CTR at [facility].
--- NOTE | 2025-01-15 15:02 | WPDANESEPPF ---
Anes - Initial Pre Proc Eval Procedure: Operation Date: 01/16/25 09:45 Proposed Procedures p Left Endoscopic Carpal Tunnel Release, Possible Open Carpal Tunnel - Tim Howe MD s Left Cubital Tunnel Release - Tim Howe MD Date/Time: 01/15/25 15:02 Surgeon: Tim Howe MD Pre Op Diagnosis: Left Carpal and Cubital Tunnel Syndrome Patient Data Age: 79 Gender: F Height: 1.6 m Weight: 60.4 kg Allergies Allergy/AdvReac Type Severity Reaction Status Date / Time ceftriaxone Allergy Severe Hives Verified 01/16/25 08:35 daptomycin Allergy Severe Hives Verified 01/16/25 08:35 propoxyphene AdvReac Mild Nausea and Verified 01/16/25 08:35 Vomiting Home Medications ?Medication ?Instructions ?Recorded ?Confirmed ?Type ascorbic acid 125 mg-collagen, 1 cap PO DAILY 03/09/21 01/16/25 History hydrolyzed 740 mg capsule (Collagen Plus Vitamin C) calcium citrate 200 mg PO DAILY 03/09/21 01/16/25 History cetirizine 10 mg tablet (Zyrtec) 10 mg PO DAILY 03/09/21 01/16/25 History cholecalciferol (vitamin D3) 50 50 mcg PO DAILY 03/09/21 01/16/25 History mcg (2,000 unit) capsule glucosamine-chondroitin 250 mg-200 2 tablet PO DAILY 03/09/21 01/16/25 History mg tablet (Osteo Bi-Flex) mecobalamin (vitamin B12) 5,000 5,000 mcg PO DAILY 03/09/21 01/16/25 History mcg disintegrating tablet zqfbwnom-nlfe-elwa 8 mg-folic 400 1 tablet PO DAILY 03/09/21 01/16/25 History mcg-K 50 mcg-lutein 300 mcg tablet (Centrum Silver Women) turmeric 400 mg capsule 400 mg PO DAILY 03/09/21 01/16/25 History coenzyme Q10 100 mg capsule (Co 100 mg PO DAILY 04/10/24 01/16/25 History Q-10) vitamin A-vit C-vit E-zinc-Cu 1 tablet PO DAILY 04/10/24 01/16/25 History tablet hydralazine 10 mg tablet See Rx Instructions PO BID #360 05/24/24 01/16/25 Rx tabs insulin lispro 100 unit/mL 16 unit (0.16 mL) subcut .COMPLEX 05/24/24 01/16/25 Rx subcutaneous pen (Humalog KwikPen #45 mL (U-100) Insulin) amlodipine 10 mg tablet 10 mg PO DAILY #90 tabs 09/12/24 01/16/25 Rx spironolactone 25 1 tablet PO BID #180 tabs 10/30/24 01/16/25 Rx mg-hydrochlorothiazide 25 mg tablet atorvastatin 40 mg tablet 40 mg PO DAILY #90 tabs 11/17/24 01/16/25 Rx losartan 100 mg tablet 100 mg PO DAILY #90 tabs 11/17/24 01/16/25 Rx meclizine 25 mg tablet 25 mg PO DAILY #90 tabs 11/18/24 01/16/25 Rx alpha lipoic acid 100 mg capsule 100 mg PO DAILY 12/31/24 01/16/25 History insulin glargine 100 unit/mL (3 35 unit subcut HS 12/31/24 01/16/25 History mL) subcutaneous pen (Lantus Solostar U-100 Insulin) omega 9-syd-fkz-fish oil 1,000 mg 1 cap PO DAILY 12/31/24 01/16/25 History (120 mg-180 mg) capsule (Fish Oil) levothyroxine 88 mcg tablet See Rx Instructions .Route 01/10/25 01/16/25 Rx .COMPLEX #180 tabs tramadol 50 mg tablet 50 mg PO Q6H PRN pain #12 tabs 01/16/25 Rx Patient hx anesthesia problems: none Family hx anesthesia problems: none Results Review: All pre-operative results and documents have been reviewed as part of the pre-operative evaluation. 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 Hyperlipidemia Hypothyroidism Hypertension Type 2 diabetes mellitus without complication Seasonal allergies Arthritis Surgical History Surgical History History of tubal ligation H/O dilation and curettage Family History Family History Father Lymphoma Mother Heart disease Diabetes mellitus Sibling Osteosarcoma Sibling Breast cancer Sibling Malignant neoplasm of prostate Sibling Cardiac arrhythmia Daughter Melanoma Social History Social History Smoking status: Never smoker Second hand tobacco smoke exposure: No Alcohol intake: never Substance use: never Substance use type: does not use Do You Feel Safe in your Home?: Yes Lack of Transportation: No Lack of Food: Never True Current Housing: I Have Housing Concerned About Future Housing: No Difficulty Paying Gas/Electric Bills: No Difficulty Paying for Meds: No Currently Unemployed: No Education: High School Diploma/GED Difficulty w/ Childcare or Family Care: No Living arrangements: with family Gender identity (if verbalized by the patient): Female Spiritual care concerns: No Agree to blood products: Yes Anes - Eval Final PreProcedure Day of Procedure 01/15/25 15:02 Patient weight: normal Heart: regular rate and rhythm Lungs: clear to auscultation and normal air movement Airway: Mallampati scale class II Neurological: alert and oriented Last oral intake: >/= 8 hours ASA classification: III Emergent: no Anesthetic plan: proceed Anesthesia type and monitoring: general GIVS and standard monitoring Results Review: All pre-operative results and documents have been reviewed as part of the pre-operative evaluation. Informed Consent: The patient's anesthetic plan and its attendant risks and benefits were discussed with the patient/family/POA. Questions were solicited and answers provided to the satisfaction of the patient/family/POA.
[2025-01-16] VITALS (9 sets, daily range): BP systolic 91–167; BP diastolic 44–63; PULSE 51–66; RESP 14–20; TEMP 36.6–36.9; O2SAT 96–100
--- NOTE | 2025-01-16 06:49 | WPDHPUPDATE1 ---
History and Physical Update Update Date/Time: 01/16/25 06:49 Patient seen and examined in pre-operative holding area. No interval change in medical history or symptoms. Patient recalls previous discussion of benefits and alternatives to procedure. Continues to desire to proceed with left endoscopic possible open carpal tunnel release and left cubital tunnel release . Reviewed procedure, post-op expectations and risks including but not limited to bleeding, infection, injury to tendon/nerve/vessel, decreased hand function, stiffness, RSD, no change or worsening of symptoms. I discussed the possible use of assistants and their participation in the case. Patient stated understanding and signed the consent form wishing to proceed.
--- NOTE | 2025-01-16 06:49 | W.PM.PROC2 ---
Procedure Note - Detailed Date of Procedure 01/16/25 Pre-op Diagnosis Left Carpal and Cubital Tunnel Syndrome Post-op Diagnosis Same Procedure Performed left ectr and CuTR Surgeon Tim Howe MD Anesthesia MAC Description of Procedure INFORMED CONSENT: The patient was seen and examined and marked in the pre-op area.? The patient signed the consent form. PROCEDURE IN DETAIL:The patient taken back to OR on the stretcher in supine position. Time out performed with anesthesia, surgeon and staff agreeing on patient's name site and surgery to be performed SCDs were placed on the lower extremities and inflated. A tourniquet was placed on {left} upper extremity and antibiotics given IV After anesthesia administered sedation I injected {10}cc 1%lido with epi and 0.5% marcaine plain at the operative sites The?{left upper extremity}?was prepped and draped in sterile fashion the??{left upper extremity} was? exsanguinated with Esmarch bandage and tourniquet inflated to 250mmHg I made a transverse incision in the {left} volar distal wrist crease through skin and dermis with 15 blade scalpel.? Littler scissors spread down to antebrachial fascia. A small incision was made in antebrachial fascia allowing access to Carpal tunnel. I proceeded with sequential dilation staying in line with the ring finger and hugging the hook of the hamate.? I then used the synovial elevator to free any adhesions from the underside of the transverse carpal ligament. Next I was able to insert the Microaire endoscopic carpal tunnel device with direct visualization of the transverse fibers on the monitor and proceeded with complete segmental retrograde release of the ligament in its entirety.? I irrigated with normal saline and closed with 4-0 monocryl for dermis and subcuticular closure. I next proceeded with making a longitudinal incision between two heads for flexor carpi ulnaris at end of {left} cubital tunnel with 15 blade scalpel.? Littler scissors were used to spread down to FCU fascia.? An incision was made in FCU fascia and ulnar nerve identified exiting cubital tunnel.? I proceeded with complete retrograde release of the cubital tunnel including 7cm proximal for the intermuscular septum.? The nerve appeared somewhat atrophic with looser surrouding adipose tissue though there were visible vaso nervorum.? There was no subluxation on full elbow range of motion. ? I irrigated with normal saline and closure with 3-0 vicryl and 4-0 monocryl. The incisions were covered with Dermabond then 4x4s, angely, and a volar forearm and posterior elbow splint for patient safety, security and comfort and secured with junior bandages after the tourniquet was let down noting the hand was warm and well perfused.? Patient awaken from anesthesia and transferred to recovery in stable condition Complications - none EBL- 1cc Disposition - home in stable conditions Reese Britton PA-C was essential for positioning, retraction, closure and dressing placement [facility] Billing Surgery - Charge Forward: Surgery Billing ([id number] for reese)
[2025-01-16] MEDS: LACTATED RINGERS 1,000 ML 30 ML IV CONT ×2 (08:50→11:00)
[2025-01-16 09:33] LABS: Glucose Point of Care 120 mg/dl (65-105)
[2025-01-16] MEDS: LIDO 1%/EPINEPHRINE 1:100,000 10 ML VIAL INFILTRATE (10:06)
[2025-01-16] MEDS: CLINDAMYCIN 900 MG/NS 50 ML 900 MG/50 ML PIGGYBACK 50 MG IVPB (10:21)
--- NOTE | 2025-01-16 10:43 | WPDANESPN ---
Anes - Prog Note Post-Op Date/Time: 01/16/25 10:43 Cardiovascular status: normal Respiratory status: normal Airway patency: baseline Mental status: baseline Post-Op hydration status: normal Vital Signs: Last Vital Signs Temp 36.9 C 01/16/25 08:35 Pulse 66 01/16/25 08:35 Resp 18 01/16/25 08:35 BP 167/57 H 01/16/25 08:35 Pulse Ox 100 01/16/25 08:35 O2 Del Method Room Air 01/16/25 08:35 Pain Score (VAS): 0 01/16/25 08:47 POC Capillary Glucose 120 H Post-procedural complaints: none Patient Feedback: Patient satisfied with anesthetic care. Other Findings: Patient vital signs back to baseline. Patient denies nausea and vomiting. Patient's pain under control. Patient OK for discharge.
[2025-01-16 11:32] LABS: Glucose Point of Care 122 mg/dl (65-105)
== END 2025-01-16 12:05 | disposition home or self-care (01) ==
PROVIDERS: PCP Family Medicine; Visit Provider Plastic Surgery
PROC: 01N54ZZ Release Median Nerve, Percutaneous Endoscopic Approach (ICD-10-PCS; CPT 29848; principal; 2025-01-16 09:45)
PROC: (CPT 64718; 2025-01-16 09:45)
DX: G56.02 Carpal tunnel syndrome, left upper limb (principal); G56.22 Lesion of ulnar nerve, left upper limb
CPT/HCPCS: 29848; 64718

== ENCOUNTER 2025-06-09 13:08 | Outpatient (CLI) | payer MEDICARE, SELFPAY ==
--- NOTE | ~2025-06-09 | DEXA_ITS ---
Bone Density Report Name: AKASH DE Age: 80 Sex: Female Ethnicity: White Date of : 1945 Indication: postmenopausal; screening for osteoporosis; height loss; Referring Provider: ADAMS BACH Study: Bone densitometry was performed. Exam Date: June 09, 2025 Accession number: [id number] Bone Density: Region BMD T-score Z-score Classification AP Spine(L1, L2, L3) 1.201 1.7 4.3 Normal Femoral Neck (Left) 0.742 -1.0 1.4 Normal Total Hip (Left) 0.890 -0.4 1.7 Normal Femoral Neck (Right) 0.671 -1.6 0.7 Osteopenia Total Hip (Right) 0.870 -0.6 1.5 Normal Total Hip Mean 0.880 -0.5 1.6 Normal World Health Organization criteria for BMD impression classify patients as: Normal (T-score at or above -1.0), Osteopenia (T-score between -1.0 and -2.5), or Osteoporosis (T-score at or below -2.5). 10-year Fracture Risk(1): Major Osteoporotic Fracture 14% Hip Fracture 3.6% Reported Risk Factors: [place] (), Neck BMD=0.671, BMI=25.3 (1) FRAX(R) Version 3.08. Fracture probability calculated for an untreated patient. Fracture probability may be lower if the patient has received treatment. Previous Exams: -- Region Exam Age BMD T-score BMD Change BMD Change Date g/cm2 vs Baseline vs Previous -- AP Spine (L1-L3) 06/09/2025 80 1.201 1.7 -2.3%* -2.3%* 06/30/2022 77 1.229 1.9 Total Hip(Left) 06/09/2025 80 0.890 -0.4 -7.1%* -7.1%* 06/30/2022 77 0.959 0.1 Total Hip(Right) 06/09/2025 80 0.870 -0.6 -4.7%* -4.7%* 06/30/2022 77 0.912 -0.2 -- *Denotes significance at 95% confidence level, LSC for AP Spine = 0.022 g/cm2, LSC for Total Hip = 0.027 g/cm2 Clinical Information Provided by Patient: Has used the following medications: Vitamin D, Calcium Patient maximum height was 64.5 Menopause Age: 47 Drinks caffeinated beverages Onset of menses at age 14 Number of children 1 Impression: The patient has low bone mass, based on the Right Femoral Neck T-score. The patient has an estimated ten-year risk of hip fracture of 3.6% and an estimated ten-year risk of major fracture of 14%, based on the WHO FRAX algorithm. The BMD for the AP Spine (L1-L3) decreased, changing by -2.3% since the last DXA exam. The BMD for the Total Hip(Left) decreased, changing by -7.1% since the last DXA exam. The BMD for the Total Hip(Right) decreased, changing by -4.7% since the last DXA exam. Discussion: BONE DENSITY IS LOW AT ONE OR MORE SKELETAL SITES. THE PATIENT'S BMD AND CLINICAL RISK FACTORS CONTRIBUTE TO THIS PATIENT'S INCREASED RISK OF FRACTURE. This patient's lowest T-score is low at one or more skeletal sites. It meets the World Health Organization's (WHO) criteria for ?low bone mass? (T-score between -1.0 and -2.5). The patient's 10-year risk of hip fracture as calculated by FRAX exceeds the threshold where pharmacological therapy is recommended by the National Osteoporosis Foundation (NOF). However, all treatment decisions require clinical judgment and consideration of individual patient factors, including patient preferences, comorbidities, previous drug use, risk factors not captured in the FRAX model (e.g., frailty, falls, vitamin D deficiency, increased bone turnover, interval significant decline in bone density) and possible under or overestimation of fracture risk by FRAX. The patient should follow a healthful lifestyle (good nutrition with adequate calcium and vitamin D, and appropriate weight-bearing exercise). Follow-Up: Consider a repeat BMD and Vertebral Fracture Assessment (VFA) exam in 2 years or sooner if medically necessary, to reassess this patient's status. Reported by: HARJEET on 06/09/2025 1:31:00 PM. Reviewed, dictated and finalized at location A.
== END 2025-06-09 13:09 | disposition home or self-care (01) ==
PROVIDERS: PCP Family Medicine; Visit Provider Family Medicine
DX: Z78.0 Asymptomatic menopausal state (principal); M85.851 Other specified disorders of bone density and structure, right thigh
CPT/HCPCS: 77080